=== PATIENT | female | born 1950 | race Caucasian/White ===

== ENCOUNTER 2020-12-23 20:48 | Inpatient (IN) ==
[2020-12-23 21:05] LABS: Basophils # (auto) 0.02 K/uL (0-0.2); Basophils % (auto) 0.2 %; Eosinophils # (auto) 0.18 K/uL (0-0.5); Eosinophils % (auto) 1.4 %; Hematocrit (blood only) 41.8 % (37-47); Hemoglobin 14.5 g/dL (12.0-16.0); Immature Granulocytes # (auto) 0.02 K/uL (0.00-0.02); Immature Granulocytes % (auto) 0.2 %; Lymphocytes # (auto) 1.73 K/uL (1.2-3.4); Lymphocytes % (auto) 13.8 %; Mean Corpuscular Hemoglobin 30.8 pg (25-34); Mean Corpuscular Hgb Conc 34.7 g/dL (32-36); Mean Corpuscular Volume 88.7 fL (80-100); Mean Platelet Volume 10.1 fL (7.4-10.4); Monocytes # (auto) 0.07 K/uL (0.11-0.59); Monocytes % (auto) 0.6 %; Neutrophils # (auto) 10.52 K/uL (1.4-6.5); Neutrophils % (auto) 83.8 %; Platelet Count 217 K/uL (130-400); RDW Coefficient of Variation 13.6 % (11.5-14.5); RDW Standard Deviation 44.6 fL (36.4-46.3); Red Blood Count 4.71 M/uL (4.2-5.4); White Blood Count 12.54 K/uL (4.8-10.8)
[2020-12-23 21:16] LABS: Partial Thromboplastin Ratio 0.9; Partial Thromboplastin Time 22.9 Seconds (21.0-31.0); Prothrombin Time 9.8 Seconds (9.0-12.0)
[2020-12-23 21:22] LABS: Alanine Aminotransferase 430 U/L (12-78); Aspartate Aminotransferase 739 U/L (15-37); BUN Creatinine Ratio 16.6 (10-20); Blood Urea Nitrogen 16 mg/dl (7-18); Calcium 9.3 mg/dl (8.5-10.1); Carbon Dioxide 26 mmol/L (21-32); Chloride 105 mmol/L (98-107); Creatinine Clr Calc Pharmacy 49.7 ml/min; Est GFR (African American) 70.2; Est GFR (Non-African American) 60.6; Glucose 201 mg/dl (70-99); Potassium 3.6 mmol/L (3.5-5.1); Sodium 137 mmol/L (136-145)
[2020-12-23 21:27] LABS: Albumin Globulin Ratio 1.2 (0.9-2); Alkaline Phosphatase 213 U/L (45-117); Bilirubin,Total 1.1 mg/dl (0.2-1); Globulin 3.5 gm/dl (2.5-4.0); Total Protein 7.5 gm/dl (6.4-8.2); Troponin I < 0.015 ng/ml (0-0.045)
--- NOTE | 2020-12-23 21:39 | Emergency Department Note ---
Impression & Plan Midsternal chest pain, Acalculous cholecystitis, Elevated LFTs ED Provider Note INFORMANT: Patient ED PROVIDER(S): Alfred Jerome MD CHIEF COMPLAINT: Chest pain PLAN: Disposition: Admitted Condition: Good Outpatient prescription management: none Referral: None MEDICAL DECISION MAKING: Patient presented emergency room complaining of chest pain. On examination she was tender in the epigastric and right upper quadrant. She received morphine and Zofran. This helped quite a bit with her symptoms. Her ECG did not show any acute findings. The patient was found to have a normal troponin and blood work except for her LFTs being markedly elevated. In light of this she was sent for ultrasound imaging. This revealed a borderline thickened wall, dilated common bile duct, and distended gallbladder. Sludge noted. Concerning for obstructive process or acalculus cholecystitis. Patient will need further management in hospital. Case was discussed with Dr. Forrest Villatoro, [facility] hospitalist service. Triage Nursing notes reviewed and agree them. Vital Signs: reviewed and remarkable for borderline tachycardia and hypertension Differential diagnosis: Cardiac ischemia, aortic dissection, pulmonary embolism, pneumothorax, pneumonia, pericarditis, myocarditis, esophageal rupture, GERD, cholecystitis, pancreatitis, musculoskeletal, as well as other pathologies. Diagnostics interpreted by me: ECG: ST at 103. [place]:Normal QRS:Normal ST segements:No elevation or depression Other:No PACs or PVCs Cardiac Monitoring: Cardiac monitoring ordered by me: The patient was placed on continuous cardiac monitoring and observed. It revealed a normal sinus rhythm at 91 beats per minute without ectopy or evidence of dysrhythmia. Imaging studies: Ultrasound imaging of the gallbladder is abnormal. I refer you to the EMR for further details. Consultation(s): [facility] hospitalist service HPI: The patient is a 70 year old female who presents to the Emergency Room with complaints of substernal sharp chest pain. This started at 1400 today and is pe rsisting. The patient also notes the following associated symptoms, SOB, nausea. The patient has tried antacids for relieving factors. Current pain is rated as 3/10. Hx of CAD. Pt denies LOC, headache, fevers, chills, diaphoresis, visual changes, neck pain, nausea, vomiting, abdominal pain, back pain, melena, hematochezia, urinary symptoms, numbness, weakness, lymphadenopathy, rash, or other complaints. ROS: See above HPI for pertinent positives & negatives. A total of 10 systems reviewed and were otherwise negative. PAST MEDICAL HISTORY:See Below , CAD PAST SURGICAL HISTORY:See Below, Stent x 1 FAMILY HISTORY:See Below SOCIAL HISTORY:See Below, +tobacco HOME MEDICATIONS:See Below ALLERGIES:See Below VITALS:See Below PHYSICAL EXAMINATION: GENERAL: Awake, alert, well-appearing, in no distress HENT: Normocephalic, atraumatic. Oropharynx unremarkable. EYES: Normal conjunctiva. Sclera non-icteric. NECK: Inspection normal. Non-tender. Supple. No nuchal rigidity. FROM. No masses. RESPIRATORY: Clear to auscultation. No wheezes. No rales. Normal respiratory effort. CARDIAC: Normal rate. Normal rhythm. No murmurs. No rubs. Extremities warm and well perfused. Pulses equal. No JVD. GI: Soft, non-distended. No tenderness to palpation. No rebound or guarding. No masses. RECTAL: Deferred. MUSCULOSKELETAL: Atraumatic. Chest examination reveals no tenderness. The back is symmetrical on inspection without obvious abnormality. There is no CVA tenderness to palpation. No joint edema. LOWER EXTREMITIES: Calves are equal size bilaterally and non-tender. No edema. No discoloration. NEURO: Normal sensorium. No sensory or motor deficits noted. SKIN: No rash or jaundice noted. Alfred Jerome MD Past Med/Surg History Social History Smoking Status: Light tobacco smoker Tobacco Type: Cigarettes Preferred Language: Bangladeshi Feels Safe at Home: Yes Allergies Allergies Allergy/AdvReac Type Severity Reaction Status Date / Time No Known Allergies Allergy Verified 12/23/20 21:48 Home Meds Home Medications Medication Instructions Recorded Confirmed amlodipine 10 mg PO DAILY 12/23/20 12/23/20 atorvastatin 80 mg PO DAILY 12/23/20 12/23/20 buspirone 10 mg PO TID 12/23/20 12/23/20 lamotrigine 50 mg PO BID 12/23/20 12/23/20 metoprolol tartrate 50 mg PO BID 12/23/20 12/23/20 primidone 50 mg PO DAILY 12/23/20 12/23/20 venlafaxine 50 mg PO DAILY 12/23/20 12/23/20 Results & Data (ED) Vital Signs Vital Signs - 24 hr 12/23/20 20:52 12/23/20 21:30 12/23/20 22:00 Temperature 36.5 C Temperature Source Oral Pulse Rate 100 H 88 90 Pulse Rate from SpO2 Sensor 89 89 Respiratory Rate 20 18 17 Blood Pressure 172/115 H 177/93 H 132/78 Blood Pressure Mean 134 121 96 Pulse Oximetry 96 98 96 Oxygen Delivery Method Sepsis Recent Fever Within 48 Hours No Sepsis New/Unexplained Change in Mental Status No Sepsis Action Taken by Nursing No Action Required 12/23/20 23:14 Temperature Temperature Source Pulse Rate 85 Pulse Rate from SpO2 Sensor 80 Respiratory Rate 17 Blood Pressure 134/90 Blood Pressure Mean 104 Pulse Oximetry 93 Oxygen Delivery Method Room Air Sepsis Recent Fever Within 48 Hours Sepsis New/Unexplained Change in Mental Status Sepsis Action Taken by Nursing Laboratory Data Result diagrams: 12/23/20 20:57 12/23/20 20:57 Lab Results 12/23/20 12/23/20 12/23/20 Range/Units 20:57 20:57 20:57 WBC 12.54 H (4.8-10.8) K/uL RBC 4.71 (4.2-5.4) M/uL Hgb 14.5 (12.0-16.0) g/dL Hct 41.8 (37-47) % MCV 88.7 (80-100) fL MCH 30.8 (25-34) pg MCHC 34.7 (32-36) g/dL RDW Std Deviation 44.6 (36.4-46.3) fL RDW Coeff of Miquel 13.6 (11.5-14.5) % Plt Count 217 (130-400) K/uL MPV 10.1 (7.4-10.4) fL Immature Gran % (Auto) 0.2 % Neut % (Auto) 83.8 % Lymph % (Auto) 13.8 % [place] % (Auto) 0.6 % Eos % (Auto) 1.4 % Baso % (Auto) 0.2 % Neut # (Auto) 10.52 H (1.4-6.5) K/uL Lymph # (Auto) 1.73 (1.2-3.4) K/uL [place] # (Auto) 0.07 L (0.11-0.59) K/uL Eos # (Auto) 0.18 (0-0.5) K/uL Baso # (Auto) 0.02 (0-0.2) K/uL Immature Gran # (Auto) 0.02 (0.00-0.02) K/uL PT 9.8 (9.0-12.0) Seconds INR 1.0 (0.9-1.1) APTT 22.9 (21.0-31.0) Seconds PTT Ratio 0.9 Sodium 137 (136-145) mmol/L Potassium 3.6 (3.5-5.1) mmol/L Chloride 105 (98-107) mmol/L Carbon Dioxide 26 (21-32) mmol/L Anion Gap 6.0 (3-11) BUN 16 (7-18) mg/dl Creatinine 0.94 (0.6-1.2) mg/dl Est Cr Clr Drug Dosing 49.7 ml/min Est GFR ( Amer) 70.2 Est GFR (Non-Af Amer) 60.6 BUN/Creatinine Ratio 16.6 (10-20) Glucose 201 H (70-99) mg/dl Calcium 9.3 (8.5-10.1) mg/dl Magnesium 1.8 (1.8-2.4) mg/dl Total Bilirubin 1.1 H (0.2-1) mg/dl AST 739 H (15-37) U/L ALT 430 H (12-78) U/L Alkaline Phosphatase 213 H (45-117) U/L Troponin I < 0.015 (0-0.045) ng/ml Total Protein 7.5 (6.4-8.2) gm/dl Albumin 4.0 (3.4-5.0) gm/dl Globulin 3.5 (2.5-4.0) gm/dl Albumin/Globulin Ratio 1.2 (0.9-2) Lipase 381 (73-393) U/L COVID-19 Eval Order SARS-CoV-2, RNA, NAAT (NEGATIVE) 12/23/20 12/23/20 Range/Units 23:20 23:20 WBC (4.8-10.8) K/uL RBC (4.2-5.4) M/uL Hgb (12.0-16.0) g/dL Hct (37-47) % MCV (80-100) fL MCH (25-34) pg MCHC (32-36) g/dL RDW Std Deviation (36.4-46.3) fL RDW Coeff of Miquel (11.5-14.5) % Plt Count (130-400) K/uL MPV (7.4-10.4) fL Immature Gran % (Auto) % Neut % (Auto) % Lymph % (Auto) % [place] % (Auto) % Eos % (Auto) % Baso % (Auto) % Neut # (Auto) (1.4-6.5) K/uL Lymph # (Auto) (1.2-3.4) K/uL [place] # (Auto) (0.11-0.59) K/uL Eos # (Auto) (0-0.5) K/uL Baso # (Auto) (0-0.2) K/uL Immature Gran # (Auto) (0.00-0.02) K/uL PT (9.0-12.0) Seconds INR (0.9-1.1) APTT (21.0-31.0) Seconds PTT Ratio Sodium (136-145) mmol/L Potassium (3.5-5.1) mmol/L Chloride (98-107) mmol/L Carbon Dioxide (21-32) mmol/L Anion Gap (3-11) BUN (7-18) mg/dl Creatinine (0.6-1.2) mg/dl Est Cr Clr Drug Dosing ml/min Est GFR ( Amer) Est GFR (Non-Af Amer) BUN/Creatinine Ratio (10-20) Glucose (70-99) mg/dl Calcium (8.5-10.1) mg/dl Magnesium (1.8-2.4) mg/dl Total Bilirubin (0.2-1) mg/dl AST (15-37) U/L ALT (12-78) U/L Alkaline Phosphatase (45-117) U/L Troponin I (0-0.045) ng/ml Total Protein (6.4-8.2) gm/dl Albumin (3.4-5.0) gm/dl Globulin (2.5-4.0) gm/dl Albumin/Globulin Ratio (0.9-2) Lipase (73-393) U/L COVID-19 Eval [facility] SARS-CoV-2, RNA, NAAT NEGATIVE (NEGATIVE) Administered Medications Discontinued Medications Morphine Sulfate (Morphine Sulfate 4 Mg/Ml 1 Ml Carp\Vial) 4 mg IV NOW STA Stop: 12/23/20 21:41 Last Admin: 12/23/20 21:44 Dose: 4 mg Documented by: [id number] Ondansetron HCl (Ondansetron Inj 2 Mg/Ml 2 Ml Vial) 4 mg IV NOW STA Stop: 12/23/20 21:41 Last Admin: 12/23/20 21:44 Dose: 4 mg Documented by: [id number] Discharge Plan Visit Data Chief Complaint: Chest Pain Stated Complaint: SOB, CHEST PAIN ED Provider: Alfred Jerome Discharge Problem: Midsternal chest pain, Acalculous cholecystitis, Elevated LFTs Forms Stand Alone Forms: My [facility] Prescriptions Prescriptions: No Action primidone 50 mg Tablet 50 mg PO DAILY RF: 0 atorvastatin 80 mg Tablet 80 mg PO DAILY RF: 0 lamotrigine 25 mg Tablet 50 mg PO BID RF: 0 amlodipine 10 mg Tablet 10 mg PO DAILY RF: 0 buspirone 10 mg Tablet 10 mg PO TID RF: 0 metoprolol tartrate 50 mg Tablet 50 mg PO BID RF: 0 venlafaxine 50 mg Tablet 50 mg PO DAILY RF: 0
[2020-12-23] MEDS ORDERED: MoRPHine SULFATE 4 MG/ML 1 ML CARP\\VIAL IV STA (21:40)
[2020-12-23] MEDS ORDERED: ONDANSETRON INJ 2 MG/ML 2 ML VIAL IV STA (21:40)
[2020-12-23 23:51] LABS: Lipase 381 U/L (73-393); Magnesium 1.8 mg/dl (1.8-2.4)
[2020-12-24] MEDS ORDERED: LORazepam 0.5 MG/1 ML VIAL IV PRN (01:39)
[2020-12-24] MEDS ORDERED: DEXTROSE 50% 50 ML SYRINGE IV PRN (01:39)
[2020-12-24] MEDS ORDERED: GLUCAGON FOR INJ 1 MG VIAL SQ PRN (01:39)
[2020-12-24] MEDS ORDERED: CARBOHYDRATES FOR HYPOGLYCEMIA PO PRN (01:39)
[2020-12-24] MEDS ORDERED: GLUCOSE 40% GEL 15 GM TUBE PO PRN (01:39)
[2020-12-24] MEDS ORDERED: MoRPHine SULFATE 4 MG/ML 1 ML CARP\\VIAL IV PRN ×2 (01:39→08:20)
[2020-12-24] MEDS ORDERED: GLUCOSE 10 TABS/TUBE PO PRN (01:39)
[2020-12-24] MEDS ORDERED: ACETAMINOPHEN 325 MG TAB PO PRN (01:39)
[2020-12-24] MEDS: POTASSIUM CHLORIDE 40 MEQ in SODIUM CHLORIDE 0.9% 1000ML 1,000 ML IV SCH ×2 (02:15→20:41)
[2020-12-24] MEDS: PROMETHAZINE HCL 12.5 MG in SODIUM CHLORIDE 0.9% 50 ML IV PRN (02:15)
[2020-12-24] MEDS: METOPROLOL TARTRATE 50 MG TAB PO SCH ×2 (02:24→20:53)
[2020-12-24] MEDS: INSULIN ASPART 100 UNITS/ML 3 ML PEN SC SCH ×5 (02:39→20:54)
[2020-12-24] MEDS ORDERED: Nursing to Pharmacy Communication SCH (02:45)
--- NOTE | 2020-12-24 03:52 | History & Physical Report ---
Date of Service December 24, 2020 Assessment & Plan (1) Abdominal pain: With abnormal LFTs likely secondary to biliary tract obstruction possible choledocholithiasis No sepsis for now Hypertension, initially elevated upon arrival at the ER hx CAD status post stent hyperlipidemia on statin Rx seizure disorder, stable on regimen mood disorder, stable prediabetes as per records, meets criteria for DM2 diagnosis given hemoglobin A1c of 6.19 March 2020 Past alcohol abuse ongoing tobacco abuse OBS GMF MRCP, GI consult Re: Abdominal pain with abnormal LFTs N.p.o. until patient seen by GI ISS BG goal [id number], update hemoglobin A1c Nicotine gum as needed DVT prophylaxis per Lovenox subcu Full code Text document was generated using [employer] voice recognition software. It may contain grammatical or spelling errors. Kindly contact undersigned for clarification of any documentation item in question. Admission and Anticipated Discharge Date Admission Date: December 24, 2020 History of Present Illness Chief Complaint: Epigastric pain going to the chest Primary Care Provider: Sam Hand PA-C History obtained from patient and records. Medical history significant for CAD status post stent, hypertension, hyperlipidemia, seizure disorder, mood disorder, prediabetes as per records, past alcohol abuse, ongoing tobacco abuse. Patient woke up yesterday afternoon and noted burning epigastric discomfort going to her chest with some shortness of breath. No cough symptoms. Patient felt she was having a heart attack. Symptoms partially unresponsive to antacids. No recent EtOH intake. No fever, no chills. Patient currently more comfortable at the ER. Medical History as above Surgical History : Breast lesion excision, section, BAKARI, oophorectomy (1 ovary left) Family History : Alcoholism, breast cancer, heart disease Personal/Social history : 1 cigarette/day, past alcohol abuse, [employer] employee Allergies Allergy/AdvReac Type Severity Reaction Status Date / Time No Known Allergies Allergy Verified 12/23/20 21:48 Home Medications Medication Instructions Recorded Confirmed Type amlodipine 10 mg PO DAILY 12/23/20 12/23/20 History atorvastatin 80 mg PO DAILY 12/23/20 12/23/20 History buspirone 10 mg PO TID 12/23/20 12/23/20 History lamotrigine 50 mg PO BID 12/23/20 12/23/20 History metoprolol tartrate 50 mg PO BID 12/23/20 12/23/20 History primidone 50 mg PO DAILY 12/23/20 12/23/20 History venlafaxine 50 mg PO DAILY 12/23/20 12/23/20 History Past Med/Surg History Social History Smoking Status: Current every day smoker Tobacco Type: Cigarettes Cigarettes Per Day: 1; Do You Dip or Chew Tobacco: No; Hx Alcohol Use: No Hx Substance Use: No Preferred Language: Kyrgyz Communication Ability: Effective Bird Raiser Required: No Beliefs That Will Affect Care: None Current Living Situation: Alone Other Information That Helps Us Care for You: No Feels Safe at Home: Yes Safety Concerns: Feels Safe At This Time Assistive Devices: Denture - Upper and Glasses Assistive Devices Comment: upper partial Review of Systems Review of Systems: As per HPI, all 10 systems reviewed, all other ROS negative Physical Exam Physical Exam: GENERAL: Comfortable, obese, slightly anxious, no respiratory distress SKIN: Normal color, warm HEENT: [place] palpebral conjunctivae, no ptosis, dry buccal mucosa NECK : Supple, short neck, no tenderness CHEST : CTA, no tenderness HEART : RRR, no obvious murmurs ABDOMEN: Some distention, epigastric tenderness EXTREMITIES : Minimal LE swelling , no LE tenderness, no other conspicuous deformities noted NEUROLOGIC : Coherent, no facial asymmetry, no other gross focality Results & Data Results & Data ([facility]) Vital Signs (Past 12 Hours) Vital Signs Temp Pulse Pulse Resp BP BP Pulse Ox 12/24/20 01:57 36.8 C 93 H 20 148/91 H 94 12/24/20 01:39 36.8 C 93 H 20 148/91 H 94 12/24/20 00:59 94 H 17 144/89 H 98 12/24/20 00:00 94 H 22 139/94 98 12/23/20 23:14 85 17 134/90 93 12/23/20 22:00 90 17 132/78 96 12/23/20 21:30 88 18 177/93 H 98 12/23/20 20:52 36.5 C 100 H 20 172/115 H 96 Laboratory Results Laboratory Results WBC 12.54 K/uL (4.8-10.8) H 12/23/20 20:57 RBC 4.71 M/uL (4.2-5.4) 12/23/20 20:57 Hgb 14.5 g/dL (12.0-16.0) 12/23/20 20:57 Hct 41.8 % (37-47) 12/23/20 20:57 MCV 88.7 fL (80-100) 12/23/20 20:57 MCH 30.8 pg (25-34) 12/23/20 20:57 MCHC 34.7 g/dL (32-36) 12/23/20 20:57 RDW Std Deviation 44.6 fL (36.4-46.3) 12/23/20 20:57 RDW Coeff of Miquel 13.6 % (11.5-14.5) 12/23/20 20:57 Plt Count 217 K/uL (130-400) 12/23/20 20:57 MPV 10.1 fL (7.4-10.4) 12/23/20 20:57 Immature Gran % (Auto) 0.2 % 12/23/20 20:57 Neut % (Auto) 83.8 % 12/23/20 20:57 Lymph % (Auto) 13.8 % 12/23/20 20:57 Major % (Auto) 0.6 % 12/23/20 20:57 Eos % (Auto) 1.4 % 12/23/20 20:57 Baso % (Auto) 0.2 % 12/23/20 20:57 Neut # (Auto) 10.52 K/uL (1.4-6.5) H 12/23/20 20:57 Lymph # (Auto) 1.73 K/uL (1.2-3.4) 12/23/20 20:57 Major # (Auto) 0.07 K/uL (0.11-0.59) L 12/23/20 20:57 Eos # (Auto) 0.18 K/uL (0-0.5) 12/23/20 20:57 Baso # (Auto) 0.02 K/uL (0-0.2) 12/23/20 20:57 Immature Gran # (Auto) 0.02 K/uL (0.00-0.02) 12/23/20 20:57 PT 9.8 Seconds (9.0-12.0) 12/23/20 20:57 INR 1.0 (0.9-1.1) 12/23/20 20:57 APTT 22.9 Seconds (21.0-31.0) 12/23/20 20:57 PTT Ratio 0.9 12/23/20 20:57 Sodium 137 mmol/L (136-145) 12/23/20 20:57 Potassium 3.6 mmol/L (3.5-5.1) 12/23/20 20:57 Chloride 105 mmol/L (98-107) 12/23/20 20:57 Carbon Dioxide 26 mmol/L (21-32) 12/23/20 20:57 Anion Gap 6.0 (3-11) 12/23/20 20:57 BUN 16 mg/dl (7-18) 12/23/20 20:57 Creatinine 0.94 mg/dl (0.6-1.2) 12/23/20 20:57 Est Cr Clr Drug Dosing 49.7 ml/min 12/23/20 20:57 Est GFR ( Amer) 70.2 12/23/20 20:57 Est GFR (Non-Af Amer) 60.6 12/23/20 20:57 BUN/Creatinine Ratio 16.6 (10-20) 12/23/20 20:57 Glucose 201 mg/dl (70-99) H 12/23/20 20:57 POC Glucose 160 mg/dl (70-99) H 12/24/20 02:21 Calcium 9.3 mg/dl (8.5-10.1) 12/23/20 20:57 Magnesium 1.8 mg/dl (1.8-2.4) 12/23/20 20:57 Total Bilirubin 1.1 mg/dl (0.2-1) H 12/23/20 20:57 AST 739 U/L (15-37) H 12/23/20 20:57 ALT 430 U/L (12-78) H 12/23/20 20:57 Alkaline Phosphatase 213 U/L (45-117) H 12/23/20 20:57 Troponin I < 0.015 ng/ml (0-0.045) 12/23/20 20:57 Total Protein 7.5 gm/dl (6.4-8.2) 12/23/20 20:57 Albumin 4.0 gm/dl (3.4-5.0) 12/23/20 20:57 Globulin 3.5 gm/dl (2.5-4.0) 12/23/20 20:57 Albumin/Globulin Ratio 1.2 (0.9-2) 12/23/20 20:57 Lipase 381 U/L (73-393) 12/23/20 20:57 COVID-19 Eval Order Covid19 IDNow [facility] 12/23/20 23:20 SARS-CoV-2, RNA, NAAT NEGATIVE (NEGATIVE) 12/23/20 23:20 Diagnostic Findings Ultrasound gallbladder initial read: 5 mm cystic lesion pancreas adjacent to pancreatic duct possible small IPMN. Echogenic liver suggesting steatosis. CBD measuring 8 to 9 mm, slightly enlarged for patient's age. Consider MRCP if with evidence of biliary obstruction. Gallbladder distention with sludge but no gallstones identified. Borderline gallbladder wall thickness measuring 3 mm. No convincing findings of acute cholecystitis. No ascites. Chest x-ray as per my interpretation elevated right hemidiaphragm EKG as per my interpretation : Rate 105, sinus tachycardia, normal axis, T wave flattening lateral and septal leads Code Status & VTE Plan VTE Prophylaxis Plan VTE Prophylaxis will be ordered: Yes
[2020-12-24] MEDS: oxyCODONE HCL IR 5 MG TAB (IMMEDIATE RELEASE) PO PRN ×2 (05:41→22:26)
[2020-12-24 06:52] LABS: Estimated Average Glucose 151 mg/dl; Hemoglobin A1C 6.9 % (4.5-5.6)
[2020-12-24] MEDS: amLODIPine BESYLATE 5 MG TAB PO SCH (07:18)
[2020-12-24] MEDS: ENOXAPARIN INJ 40 MG/0.4 ML SYR SQ SCH (07:18)
[2020-12-24] MEDS: VENLAFAXINE HCL 50 MG TAB PO SCH (07:18)
[2020-12-24] MEDS: busPIRone 5 MG TAB PO SCH ×3 (07:19→20:53)
[2020-12-24] MEDS: lamoTRIgine 25 MG TAB PO SCH ×2 (07:19→20:53)
[2020-12-24 07:23] LABS: Basophils # (auto) 0.01 K/uL (0-0.2); Basophils % (auto) 0.1 %; Eosinophils # (auto) 0.05 K/uL (0-0.5); Eosinophils % (auto) 0.7 %; Hematocrit (blood only) 40.6 % (37-47); Hemoglobin 13.7 g/dL (12.0-16.0); Immature Granulocytes # (auto) 0.01 K/uL (0.00-0.02); Immature Granulocytes % (auto) 0.1 %; Lymphocytes % (auto) 8.2 %; Mean Corpuscular Hemoglobin 30.4 pg (25-34); Mean Corpuscular Hgb Conc 33.7 g/dL (32-36); Mean Corpuscular Volume 90.2 fL (80-100); Mean Platelet Volume 10.4 fL (7.4-10.4); Monocytes # (auto) 0.63 K/uL (0.11-0.59); Monocytes % (auto) 8.6 %; Neutrophils % (auto) 82.3 %; Platelet Count 203 K/uL (130-400); RDW Coefficient of Variation 13.7 % (11.5-14.5); RDW Standard Deviation 45.3 fL (36.4-46.3)
[2020-12-24 07:56] LABS: Albumin Level 3.7 gm/dl (3.4-5.0); BUN Creatinine Ratio 18.3 (10-20); Calcium 9.2 mg/dl (8.5-10.1); Creatinine Clr Calc Pharmacy 58.7 ml/min; Est GFR (African American) 89.4; Est GFR (Non-African American) 77.1
[2020-12-24 08:05] LABS: Albumin Globulin Ratio 1.1 (0.9-2); Bilirubin,Total 2.3 mg/dl (0.2-1); Globulin 3.3 gm/dl (2.5-4.0)
--- NOTE | 2020-12-24 08:05 | XRay Report ---
XR chest 1V portable HISTORY: Atypical Chest Pain COMPARISON: None. FINDINGS: The lungs are clear. Cardiac silhouette is mildly enlarged. No pleural effusions. No pneumo thorax. IMPRESSION: Mild cardiomegaly. ACT 112: Negative or not required by law. Electronically signed by: Julien Arteaga M.D. 12/24/2020 8:03 AM
--- NOTE | 2020-12-24 08:08 | Ultrasound Report ---
US gallbladder CLINICAL HISTORY: chest pain, elevated LFTs COMPARISON STUDY: No previous studies for comparison. FINDINGS: No focal hepatic masses are visualized. The liver is of slightly increased echogenicity, a nonspecific finding likely secondary to hepatic steatosis. There is gallbladder sludge but no shadowing calculi are visualized. There is no significant wall thi ckening. The gallbladder is mildly distended. The common bile duct is mildly dilated measuring 9 mm. There is no right-sided hydronephrosis. There are multiple right renal cyst. The pancreatic duct is at the upper limits of normal in diameter. There is a 5 mm cystic lesion withi n the pancreatic neck possibly representing an IPMN IMPRESSION: 1. Mildly distended gallbladder containing sludge. No shadowing calculi identified 2. Mildly dilated common bile duct measuring 9 mm in maximal diameter 3. Possible hepatic steatosis 4. 5 mm cystic lesion within the pancreatic neck possibly representing an IPMN ACT 112: Negative or not required by law. Electronically signed by: Darci Alcaraz M.D. 12/24/2020 8:06 AM
[2020-12-24] MEDS ORDERED: METOPROLOL TARTRATE 50 MG TAB PO SCH (09:00)
[2020-12-24] MEDS ORDERED: PRIMIDONE 50 MG TAB PO SCH (09:00)
--- NOTE | 2020-12-24 10:13 | Gastrointestinal Consultation ---
Date of Consultation December 24, 2020 Assessment & Plan (1) Elevated LFTs: (2) Abdominal pain: Pt is a 70 y/o female w epigastric abd pain, nausea and elevated LFTs, u/s showed signs of gallbladder sludge, CBD dilation. MRCP obtained, final results pending - IVF support - Keep NPO for ERCP in OR by Dr. Schmitz today - Trend LFTs after procedure; if not improved will need serological workup to r/o AIH, viral, acute hepatitis etc. - Symptomatic management w antiemetics and analgesics prn Supervising Physician Co-Signing Physician Notes I performed a history and physical examination of the patient today, including specifically on physical exam - soft abdomen. I have discussed the patient's management with the advanced practitioner. Please refer to the nurse practitioner's note for the documented findings and plan of care. EUS/ERCP today History of Present Illness Reason for Consultation: Abd pain, elevated LFTs Requesting Physician: Dr. John William Attending Physician: Dr. Tiffany Schmitz History of Present Illness Pt is a 70 y/o female who presented w epigastric burning pain x 2 days. She has associated nausea, no vomiting. Denies fever, chills, CP, SOB, changes in bowel habits. She tried antiacids at home w/o resolution of symptoms. On eval in ED noted to have mild leukocytosis and elevated LFTs: Tbili 2.3, AST 1925, ALT 1500, Alk phos 291. Lipase normal. RUQ u/s showed distended gallbladder w sludge but no stones, CBD 9mm, possible hepatic steatosis and pancreatic neck 5mm cystic lesion possibly IPMN Pt smokes tobacco, denies ETOH (28 yrs sober), denies illicit drugs, tattoos, body piercing APAP uses (max 2 tabs a day for OA pain), denies new meds/herbal supplements/antibx Allergies Allergy/AdvReac Type Severity Reaction Status Date / Time No Known Allergies Allergy Verified 12/23/20 21:48 Home Medications Medication Instructions Recorded Confirmed Type amlodipine 10 mg PO DAILY 12/23/20 12/23/20 History atorvastatin 80 mg PO DAILY 12/23/20 12/23/20 History buspirone 10 mg PO TID 12/23/20 12/23/20 History lamotrigine 50 mg PO BID 12/23/20 12/23/20 History metoprolol tartrate 50 mg PO BID 12/23/20 12/23/20 History primidone 50 mg PO DAILY 12/23/20 12/23/20 History venlafaxine 50 mg PO DAILY 12/23/20 12/23/20 History Patient History Medical History Coronary artery disease Dyslipidemia Elevated liver function tests History of alcohol abuse Hypertension Mood disorder Obesity Seizure disorder Surgical History H/O heart artery stent History of breast surgery History of History of total abdominal hysterectomy Social History Smoking Status: Current every day smoker Tobacco Type: Cigarettes Cigarettes Per Day: 1; Do You Dip or Chew Tobacco: No; Hx Alcohol Use: No Hx Substance Use: No Preferred Language: Kazakh Communication Ability: Effective Business Systems Architect Required: No Beliefs That Will Affect Care: None Current Living Situation: Alone Other Information That Helps Us Care for You: No Feels Safe at Home: Yes Safety Concerns: Feels Safe At This Time Assistive Devices: None Assistive Devices Comment: upper partial Review of Systems Review of Systems: All systems reviewed & are unremarkable except as noted in HPI & below Physical Exam Constitutional: WD/WN, vitals as above well groomed, cooperative and comfortable Eyes: PERRL, conjunctivae normal, anicteric sclerae ENMT: external ear and nose normal, oropharynx normal Respiratory: normal respiratory effort, lungs clear to auscultation Cardiovascular: RRR, no murmur, no edema Gastrointestinal (Abdomen): Inspection/Auscultation: + hypoactive bowel sounds Percussion/Palpation: + abdomen tender (epigastric) and abdomen soft Skin: no rashes, warm and dry no jaundice Psychiatric: A+Ox3, euthymic affect Lymphatic: no lymphedema Results & Data ([facility]) Vital Signs (Past 12 Hours) Vital Signs Temp Pulse Pulse Resp BP BP Pulse Ox 12/24/20 08:20 37.1 C 92 H 18 131/83 92 12/24/20 01:57 36.8 C 93 H 20 148/91 H 94 12/24/20 01:39 36.8 C 93 H 20 148/91 H 94 12/24/20 00:59 94 H 17 144/89 H 98 12/24/20 00:00 94 H 22 139/94 98 12/23/20 23:14 85 17 134/90 93
--- NOTE | 2020-12-24 10:30 | Magnetic Resonance Report ---
MR MRCP HISTORY: 70 years-old Female abd pain, abn lfts acute upper abdominal pain with elevated LFTs COMPARISON: Gallbladder ultrasound 12/23/2020 TECHNIQUE: MRCP without the use of IV contrast was obtained according to institutional protocol FINDINGS: Study is mildly motion degraded. The heart is enlarged. Mild right hemidiaphragmatic elevation. Numerous T2 hyperintense foci of the k idneys suggestive of cysts measuring up to 4.5 cm on the left and 2.7 cm on the right. There is a reyna picious 2.1 x 1.8 cm lesion of the posterior interpolar right kidney on image 20 series 3 which is pr edominately T2 isointense. There is no hydronephrosis. No aortic aneurysm. No adenopathy. No bowel ob struction or abdominal free fluid. Unremarkable soft tissues. The spleen, adrenal glands and liver appear unremarkable. Distended gallbladder with layering sludge versus cholelithiasis. The common bile duct is normal in caliber measuring 8 mm. There is no intrahe patic biliary ductal dilation. No choledocholithiasis. No pericholecystic fluid. No pancreatic ductal dilation. 7 mm T2 hyperintense focus of the pancreatic neck is suggestive of a sidebranch IPMN. No p ancreatic divisum. IMPRESSION: 1. Distended gallbladder with layering sludge versus cholelithiasis. 2. No biliary ductal dilation or choledocholithiasis identified. 3. 7 mm cystic lesion of the peripancreatic neck is suggestive of a sidebranch IPMN. 4. Bilateral renal cysts with a 2.1 x 1.8 cm lesion of the posterior interpolar right kidney suspicio us for renal cell carcinoma. Correlation with a CT or MRI renal mass protocol study recommended. ACT 112: Positive. There are findings on this exam that require communication between the performing entity and the patient following Patient Test Result Information Act ([place] Act 112) guidelines. The above report was generated using voice recognition software. It may contain grammatical, syntax o r spelling errors. Electronically signed by: Juan David Blum M.D. 12/24/2020 10:29 AM
--- NOTE | 2020-12-24 11:18 | Hospitalist Progress Note ---
Date of Service December 24, 2020 Assessment & Plan (1) Elevated liver function tests: Possible hepatic steatosis CBD dilatation Transaminitis Possible IPMN -Gall Bladder:Mildly distended gallbladder containing sludge. No shadowing calculi identified. Mildly dilated common bile duct measuring 9 mm in maximal diameter. Possible hepatic steatosis. 5 mm cystic lesion within the pancreatic neck possibly representing an IPMN -MRCP:Distended gallbladder with layering sludge versus cholelithiasis. No biliary ductal dilation or choledocholithiasis identified. 7 mm cystic lesion of the peripancreatic neck is suggestive of a sidebranch IPMN. Bilateral renal cysts with a 2.1 x 1.8 cm lesion of the posterior interpolar right kidney suspicious for renal cell carcinoma. Correlation with a CT or MRI renal mass protocol study recommended. -H/O prior Alcohol use--currently denies use -Hold Statin for now -Admits to taking Tylenol daily -Avoid Hepatotoxic agents -Monitor LFTs -Planned for ERCP today -Appreciate GI Input -Will consider serological work up if needed Renal Lesion Suspicious for renal cell carcinoma H/O Tobacco use Incidental finding on MRCP Will Consult Urology Hypertension Continue amlodipine, metoprolol Monitor CAD S/P Stent Continue home medications Hyperlipidemia Hold statin secondary to elevated LFTs Seizure disorder Mood disorder Continue home meds DM II H/O Prediabetes as per records Diet controlled Continue insulin therapy while hospitalized Diabetic education Ongoing tobacco abuse 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 DVT Px: Lovenox SQ Code Status Full code Disposition Expect to discharge home when medically stable Admission and Anticipated Discharge Date Admission Date: December 24, 2020 Subjective Patient is seen and examined at bedside Less abdominal pain today Reports nausea but no vomiting Plan for ERCP today Denies chest pain, dizziness, dyspnea Offers no other complaints Review of Systems Review of Systems: All systems reviewed & are unremarkable except as noted in HPI & below Physical Exam Physical Exam: Physical Exam: Vitals signs as noted above General Appearance:Moderately built and nourished, no apparent distress Head: normocephalic, Atraumatic Eyes: normal inspection, EOMI Neck: supple, Trachea midline Respiratory/Chest: Normal breath sounds, CTA, No accessory muscle use Cardiovascular: S1, S2, No murmur Abdomen/GI:Soft, Mild Epigastric tender, Bowel sounds present Extremities/Musculoskelatal:normal inspection, B/L LE edema Neurologic/Psych:AAOX3, grossly no focal neurological deficits Skin: normal color, warm Results & Data Results & Data ([facility]) Vital Signs (Past 12 Hours) Vital Signs Temp Pulse Pulse Resp BP BP Pulse Ox 12/24/20 08:20 37.1 C 92 H 18 131/83 92 12/24/20 01:57 36.8 C 93 H 20 148/91 H 94 12/24/20 01:39 36.8 C 93 H 20 148/91 H 94 12/24/20 00:59 94 H 17 144/89 H 98 12/24/20 00:00 94 H 22 139/94 98 Laboratory Results Short CBC 12/23/20 12/24/20 Range/Units 20:57 06:54 WBC 12.54 H 7.30 (4.8-10.8) K/uL Hgb 14.5 13.7 (12.0-16.0) g/dL Hct 41.8 40.6 (37-47) % Plt Count 217 203 (130-400) K/uL BMP 12/23/20 12/24/20 20:57 06:54 Sodium 137 137 Potassium 3.6 4.0 Chloride 105 105 Carbon Dioxide 26 24 BUN 16 14 Creatinine 0.94 0.77 Glucose 201 H 162 H Calcium 9.3 9.2 Cardiac Enzymes 12/23/20 Range/Units 20:57 Troponin I < 0.015 (0-0.045) ng/ml Liver Function 12/23/20 12/24/20 Range/Units 20:57 06:54 Total Bilirubin 1.1 H 2.3 H D (0.2-1) mg/dl AST 739 H 1925 H (15-37) U/L ALT 430 H 1500 H (12-78) U/L Alkaline Phosphatase 213 H 291 H (45-117) U/L Albumin 4.0 3.7 (3.4-5.0) gm/dl
[2020-12-24] MEDS ORDERED: fentaNYL citrate 100 MCG/2 ML VIAL ONE (13:27)
[2020-12-24] MEDS ORDERED: LIDOCAINE HCL 2% 2 ML VIAL/AMP(20MG/ML) INFIL ONE (13:27)
[2020-12-24] MEDS ORDERED: ONDANSETRON INJ 2 MG/ML 2 ML VIAL ONE (13:27)
[2020-12-24] MEDS ORDERED: PROPOFOL IV EMULSION 10 MG/ML 20 ML VIAL IV ONE (13:27)
--- NOTE | 2020-12-24 13:54 | Electrocardiogram Report ---
Test Reason : Blood Pressure : / mmHG Vent. Rate : 103 BPM Atrial Rate : 103 BPM P-R Int : 166 ms QRS Dur : 078 ms QT Int : 342 ms P-R-T Axes : 063 014 054 degrees QTc Int : 448 ms Poor data quality, interpretation may be adversely affected Sinus tachycardia Otherwise normal ECG No previous ECGs available Confirmed by Leonides Mendez ([id number]) on 12/24/2020 1:54:20 PM Referred By: REFERRED SELF Confirmed By:Leonides Mendez
--- NOTE | 2020-12-24 14:46 | Anesthesiology Consultation ---
Date of Service December 24, 2020 Assessment & Plan Chart Review Chart Review: Acceptable Risk for Surgery Consults Requested none History Surgery Operation Date: 12/24/20 09:25 Proposed Procedures p Endoscopic Retrograde Cholangiopancreato - Tiffany Schmitz MD Height/Weight Height: 5 ft Weight: 72.4 kg Allergies Allergy/AdvReac Type Severity Reaction Status Date / Time No Known Allergies Allergy Verified 12/23/20 21:48 Medications Home Medications Medication Instructions Recorded Confirmed Last Taken amlodipine 10 mg PO DAILY 12/23/20 12/23/20 12/23/20 atorvastatin 80 mg PO DAILY 12/23/20 12/23/20 12/23/20 buspirone 10 mg PO TID 12/23/20 12/23/20 12/23/20 lamotrigine 50 mg PO BID 12/23/20 12/23/20 12/23/20 metoprolol tartrate 50 mg PO BID 12/23/20 12/23/20 12/23/20 primidone 50 mg PO DAILY 12/23/20 12/23/20 12/23/20 venlafaxine 50 mg PO DAILY 12/23/20 12/23/20 12/23/20 Active Medications Generic Name Dose Route Start Last Admin Trade Name Freq PRN Reason Stop Dose Admin Amlodipine Besylate 10 mg 12/24/20 09:00 12/24/20 07:18 Amlodipine Besylate 5 Mg Tab PO 01/23/21 08:59 10 mg DAILY CHINO Administration Buspirone HCl 10 mg 12/24/20 09:00 12/24/20 07:19 Buspirone 5 Mg Tab PO 01/23/21 08:59 10 mg TID CHINO Administration Enoxaparin Sodium 40 mg 12/24/20 09:00 12/24/20 07:18 Enoxaparin Inj 40 Mg/0.4 Ml Syr SQ 01/23/21 08:59 40 mg QAM CHINO Administration Potassium Chloride 40 meq/ 1,020 mls @ 60 mls/hr 12/24/20 02:00 12/24/20 12:48 Sodium Chloride IV 01/23/21 01:59 0 mls/hr .Q17H CHINO Infusion Promethazine HCl 12.5 mg/ 50.5 mls @ 202 mls/hr 12/24/20 01:39 12/24/20 02:51 Sodium Chloride IV 01/23/21 01:38 Infused Q6H PRN Infusion Nausea And Vomiting Insulin Aspart 0 units 12/24/20 01:39 12/24/20 11:57 Insulin Aspart 100 Units/Ml 3 Ml Pen SC 01/23/21 01:38 Not Given ACHS CHINO Lamotrigine 50 mg 12/24/20 09:00 12/24/20 07:19 Lamotrigine 25 Mg Tab PO 01/23/21 08:59 50 mg BID CHINO Administration Metoprolol Tartrate 50 mg 12/24/20 01:50 12/24/20 02:24 Metoprolol Tartrate 50 Mg Tab PO 01/23/21 01:49 50 mg BID CHINO Administration Oxycodone HCl 5 - 10 mg 12/24/20 01:39 12/24/20 05:41 Oxycodone Hcl Ir 5 Mg Tab (Immediate Release) PO 01/07/21 01:38 5 mg QID PRN Administration Pain Venlafaxine HCl 50 mg 12/24/20 09:00 12/24/20 07:18 Venlafaxine Hcl 50 Mg Tab PO 01/23/21 08:59 50 mg DAILY CHINO Administration NPO Date Last Intake of Fluids: 12/23/20 Time Last Intake of Fluids: 17:00 Last Intake of Fluids Comment: ice chips this AM Date Last Intake of Solids: 12/23/20 Time Last Intake of Solids: 17:00 Past Medical History Medical History Coronary artery disease Dyslipidemia Elevated liver function tests History of alcohol abuse Hypertension Mood disorder Obesity Seizure disorder Past Surgical History Surgical History H/O heart artery stent History of breast surgery History of History of total abdominal hysterectomy Social History Smoking Status: Current every day smoker tobacco type: cigarettes Smoking cigarettes per day: 1 Do You Dip or Chew Tobacco: No Hx Alcohol Use: No Hx Substance Use: No substance use type: does not use Physical Exam Vital Signs Last Vital Signs Temp 37.4 C 12/24/20 13:25 Pulse 92 H 12/24/20 13:25 Resp 18 12/24/20 13:25 BP 118/84 12/24/20 13:25 Pulse Ox 92 12/24/20 08:20 Testing Laboratory Results 12/24/20 06:54 12/24/20 06:54 PT 9.8 Seconds (9.0-12.0) 12/23/20 20:57 INR 1.0 (0.9-1.1) 12/23/20 20:57 APTT 22.9 Seconds (21.0-31.0) 12/23/20 20:57 Hemoglobin A1c 6.9 % (4.5-5.6) H 12/23/20 20:57 12/24/20 12/24/20 11:55 07:24 POC Glucose 131 H 146 H
[2020-12-24] MEDS ORDERED: ATROPINE SULFATE 0.1 MG/ML 10ML SYR IV PRN (14:48)
[2020-12-24] MEDS ORDERED: ONDANSETRON INJ 2 MG/ML 2 ML VIAL IV PRN (14:48)
[2020-12-24] MEDS ORDERED: fentaNYL citrate 100 MCG/2 ML VIAL IV PRN (14:48)
[2020-12-24] MEDS ORDERED: ePHEDrine sulfate 50 MG/ML AMP IV PRN (14:48)
[2020-12-24] MEDS ORDERED: HYDROmorphone INJ 2 MG/ML SYR/VIAL IV PRN (14:48)
[2020-12-24] MEDS ORDERED: PROMETHAZINE HCL 12.5 MG in SODIUM CHLORIDE 0.9% 50 ML IV PRN (14:48)
[2020-12-24] MEDS ORDERED: INDOMETHACIN 50 MG SUPP PR ONE (14:59)
--- NOTE | 2020-12-24 15:00 | History & Physical Bridge Note ---
Date of Service December 24, 2020 History & Physical Bridge Note I have examined the patient, reviewed the History & Physical and in the interval since the performance of the History & Physical I have noted the following changes of clinical significance: no changes noted
--- NOTE | 2020-12-24 15:41 | Urology Consultation ---
Date of Consultation December 24, 2020 Assessment & Plan (1) Renal mass of unknown nature: Please order renal protocol renal mass and if suspicious mass found have pt follow up as outpatient when recovered with urology History of Present Illness Reason for Consultation: possible rnal mass Attending Physician: John William MD History of Present Illness Pt admitted for right upper quadrant pain and elevated liver function studies . An indeterminate right renal lesion found on MRI . Radiology recommended renal protocol CT or MRI . Given last xray was MRI would try CT . Pt undergoing a procedure currently with GI. Allergies Allergy/AdvReac Type Severity Reaction Status Date / Time No Known Allergies Allergy Verified 12/23/20 21:48 Home Medications Medication Instructions Recorded Confirmed Type amlodipine 10 mg PO DAILY 12/23/20 12/23/20 History atorvastatin 80 mg PO DAILY 12/23/20 12/23/20 History buspirone 10 mg PO TID 12/23/20 12/23/20 History lamotrigine 50 mg PO BID 12/23/20 12/23/20 History metoprolol tartrate 50 mg PO BID 12/23/20 12/23/20 History primidone 50 mg PO DAILY 12/23/20 12/23/20 History venlafaxine 50 mg PO DAILY 12/23/20 12/23/20 History Patient History Medical History Coronary artery disease Dyslipidemia Elevated liver function tests History of alcohol abuse Hypertension Mood disorder Obesity Seizure disorder Surgical History H/O heart artery stent History of breast surgery History of History of total abdominal hysterectomy Social History Smoking Status: Current every day smoker Tobacco Type: Cigarettes Cigarettes Per Day: 1; Do You Dip or Chew Tobacco: No; Hx Alcohol Use: No Hx Substance Use: No Preferred Language: Bahraini Communication Ability: Effective Complex Commercial Litigation Paralegal Required: No Beliefs That Will Affect Care: None Current Living Situation: Alone Other Information That Helps Us Care for You: No Feels Safe at Home: Yes Safety Concerns: Feels Safe At This Time Assistive Devices: None Assistive Devices Comment: upper partial Results & Data ([facility]) Vital Signs (Past 12 Hours) Vital Signs Temp Pulse Resp BP Pulse Ox 12/24/20 13:25 37.4 C 92 H 18 118/84 12/24/20 08:20 37.1 C 92 H 18 131/83 92 PG Care Time/CCT Total # of Minutes Spent Total Time Spent with Patient: Total time spent is greater than 50% in coordination of care (as documented) at patient's floor/unit and/or counseling patient: Coding Level of Care Code 46075 Inpt Consult Level 1 Diagnoses Renal mass of unknown nature N28.89
[2020-12-24] MEDS: INDOMETHACIN 50 MG SUPP PR ONE ×2 (15:47→16:28)
[2020-12-24] MEDS ORDERED: SUCCINYLCHOLINE 100MG/5ML SYR IV ONE (16:05)
[2020-12-24] MEDS ORDERED: LARYING-O-JET KIT (LTA) ONE (16:05)
[2020-12-24] MEDS ORDERED: ROCURONIUM BROMIDE 10 MG/ML 5 ML VIAL IV ONE (16:05)
[2020-12-24] MEDS ORDERED: PHENYLEPHRINE 100MCG/ML 5ML SYR ONE (16:05)
--- NOTE | 2020-12-24 16:24 | Operative Report ---
Post Operative Report Pre & Post Diagnosis Operation Date: 12/24/20 09:25 Pre-Op Diagnosis: Elevated Liver function tests with abdominal pain Post-Op Diagnosis: Common bile duct stone I identified the patient and participated in the time-out.: Yes Procedure Operation Date: 12/24/20 09:25 Actual Procedures p Endoscopic Retrograde Cholangiopancreatogram, endoscopic ultrasound(Not Applicable) - Tiffany Schmitz MD Surgeon Tiffany Schmitz MD Inside Phone Sales None Estimated Blood Loss 0 Findings See Below (CBD stone removed, stent placed) Specimens None Description of Procedure EUS/ERCP I attest to the content of the Intraoperative Record and any orders documented therein. Any exceptions are noted below.
--- NOTE | 2020-12-24 16:40 | Fluoroscopy Report ---
[place] ERCP biliary ductal HISTORY: 70 years-old Female ERCP IN OR acute right upper quadrant abdominal pain COMPARISON: MRCP of same day TECHNIQUE: 6 spot fluoroscopic images of the abdominal right upper quadrant were obtained utilizing 3 8.2 seconds fluoroscopy time FINDINGS: Endoscope is noted within the duodenum. Cannulation of the common bile duct with retrograde injection of contrast. Subsequent images demonstrate balloon sweep of the common bile duct. There is no intrah epatic or extrahepatic biliary ductal dilation. No biliary filling defects. Contrast is noted within the duodenum. No contrast extravasation. Nonopacification of the gallbladder. IMPRESSION: Fluoroscopic assistance as above. ACT 112: Negative or not required by law. The above report was generated using voice recognition software. It may contain grammatical, syntax o r spelling errors. Electronically signed by: Juan David Blum M.D. 12/24/2020 4:38 PM
--- NOTE | 2020-12-24 17:00 | GI REPORT ---
Patient Name: Stormy Gloria Procedure Date: 12/24/2020 3:36 PM Date of : 1950 Admit Type: Inpatient Age: 70 Gender: Female Attending MD: Tiffany Schmitz MD Procedure: Upper GI endoscopy Providers: Tiffany Schmitz MD Referring MD: John William Md Indications: Epigastric abdominal pain Medicines: General Anesthesia Complications: No immediate complications. Estimated Blood Loss: Estimated blood loss: none. Procedure: Pre-Anesthesia Assessment: - Prior to the procedure, a History and Physical was performed, and patient medications, allergies and sensitivities were reviewed. The patient's tolerance of previous anesthesia was reviewed. - The risks and benefits of the procedure and the sedation options and risks were discussed with the patient. All questions were answered and informed consent was obtained. - Patient identification and proposed procedure were verified prior to the procedure by the physician and the nurse. The procedure was verified in the procedure room. - Pre-procedure physical examination revealed no contraindications to sedation. After obtaining informed consent, the endoscope was passed under direct vision. Throughout the procedure, the patient's blood pressure, pulse, and oxygen saturations were monitored continuously. The Endoscope was introduced through the mouth, and advanced to the second part of duodenum. The upper GI endoscopy was accomplished without difficulty. The patient tolerated the procedure well. Findings: The examined esophagus was normal. The entire examined stomach was normal. The duodenal bulb and second portion of the duodenum were normal. A large diverticulum was found at the major papilla. Impression: - Normal esophagus. - Normal stomach. - Normal duodenal bulb and second portion of the duodenum. - Duodenal diverticulum. - No specimens collected. Recommendation: - Perform an upper endoscopic ultrasound (UEUS) today. Tiffany Schmitz MD 12/24/2020 4:59:55 PM This report has been signed electronically. Note Initiated On: 12/24/2020 3:36 PM Number of Addenda: 0 I attest to the content of the Intraoperative Record and orders documented therein, exceptions below {[id number]}
--- NOTE | 2020-12-24 17:04 | Anesthesiology Progress Note ---
Date of Service December 24, 2020 Anesthesia Post Procedure Vital Signs Vital Signs: Temp Pulse Pulse Pulse Resp BP BP 12/24/20 16:50 94 H 16 118/82 12/24/20 16:40 100 H 16 119/88 12/24/20 16:32 36.8 C 95 H 16 137/91 12/24/20 13:25 37.4 C 92 H 18 118/84 12/24/20 08:20 37.1 C 92 H 18 131/83 12/24/20 01:57 36.8 C 93 H 20 148/91 H 12/24/20 01:39 36.8 C 93 H 20 148/91 H 12/24/20 00:59 94 H 17 144/89 H 12/24/20 00:00 94 H 22 139/94 12/23/20 23:14 85 17 134/90 12/23/20 22:00 90 17 132/78 12/23/20 21:30 88 18 177/93 H 12/23/20 20:52 36.5 C 100 H 20 172/115 H Pulse Ox 12/24/20 16:50 95 12/24/20 16:40 97 12/24/20 16:32 96 12/24/20 13:25 12/24/20 08:20 92 12/24/20 01:57 94 12/24/20 01:39 94 12/24/20 00:59 98 12/24/20 00:00 98 12/23/20 23:14 93 12/23/20 22:00 96 12/23/20 21:30 98 12/23/20 20:52 96 Pain Intensity Upper Abdomen: Pain Intensity: 4 Transfer of Care Handoff Completed per policy Notes Mental Status: alert / awake / arousable and participated in evaluation Patient Amnestic to Procedure: Yes Nausea / Vomiting: adequately controlled Pain: adequately controlled Airway Patency, RR, SpO2: stable & adequate BP & HR: stable & adequate Hydration State: stable & adequate Anesthetic Complications: no major complications apparent
--- NOTE | 2020-12-24 17:09 | GI REPORT ---
Patient Name: Stormy Gloria Procedure Date: 12/24/2020 3:35 PM Date of : 1950 Admit Type: Inpatient Age: 70 Gender: Female Attending MD: Tiffany Schmitz MD Procedure: Upper EUS Providers: Tiffany Schmitz MD Referring MD: John William Md Indications: Abnormal ultrasound of the abdomen, Elevated liver enzymes, Suspected choledocholithiasis Medicines: General Anesthesia Complications: No immediate complications. Estimated Blood Loss: Estimated blood loss: none. Procedure: Pre-Anesthesia Assessment: - Prior to the procedure, a History and Physical was performed, and patient medications, allergies and sensitivities were reviewed. The patient's tolerance of previous anesthesia was reviewed. - The risks and benefits of the procedure and the sedation options and risks were discussed with the patient. All questions were answered and informed consent was obtained. - Patient identification and proposed procedure were verified prior to the procedure by the physician and the nurse. The procedure was verified in the procedure room. - Pre-procedure physical examination revealed no contraindications to sedation. After obtaining informed consent, the endoscope was passed under direct vision. Throughout the procedure, the patient's blood pressure, pulse, and oxygen saturations were monitored continuously. The Endosonoscope was introduced through the mouth, and advanced to the second part of duodenum. The upper EUS was accomplished without difficulty. The patient tolerated the procedure well. Findings: ENDOSONOGRAPHIC FINDING: : There was no sign of significant endosonographic abnormality in the ampulla. No masses were identified. There was dilation in the common bile duct which measured up to 9 mm. One stone was visualized endosonographically in the common bile duct. It was hyperechoic and characterized by shadowing. Extensive hyperechoic material consistent with sludge was visualized endosonographically in the gallbladder. There was no sign of significant endosonographic abnormality in the visualized portion of the liver. Pancreas divisum was visualized. An anechoic lesion suggestive of a cyst was identified in the pancreatic body. The lesion measured 6 mm in maximal cross-sectional diameter. There was a single compartment without septae. The outer wall of the lesion was thin. There was no associated mass. There was no internal debris within the fluid-filled cavity. There was no sign of significant endosonographic abnormality in the entire pancreas otherwise. The pancreatic duct measured up to 2 mm in diameter. There was no sign of significant endosonographic abnormality in the visualized portion of the left adrenal gland. There was no sign of significant endosonographic abnormality involving the celiac trunk. Impression: - Periampullary diverticulum limiting the exam. - There was no sign of significant pathology in the ampulla. - There was dilation in the common bile duct which measured up to 9 mm. One tiny stone was visualized endosonographically in the common bile duct. - Hyperechoic material consistent with sludge was visualized endosonographically in the gallbladder. - There was no evidence of significant pathology in the visualized portion of the liver. - Pancreas divisum was visualized. - A 6 mm cyst with no worrisome features was seen in the pancreatic body, likely a side branch IPMN. - Endosonographic images of the left adrenal gland were unremarkable. - The celiac trunk was endosonographically normal. Recommendation: - Perform an ERCP today. - Perform magnetic resonance imaging (MRI) with gadolinium in 1 year for surveillance on the pancreatic cyst. Tiffany Schmitz MD 12/24/2020 5:09:24 PM This report has been signed electronically. Note Initiated On: 12/24/2020 3:35 PM Number of Addenda: 0 I attest to the content of the Intraoperative Record and orders documented therein, exceptions below {[id number]}
--- NOTE | 2020-12-24 17:15 | GI REPORT ---
Patient Name: Stormy Gloria Procedure Date: 12/24/2020 3:34 PM Date of : 1950 Admit Type: Inpatient Age: 70 Gender: Female Attending MD: Tiffany Schmitz MD Procedure: ERCP Providers: Tiffany Schmitz MD Referring MD: John William Md Indications: For therapy of bile duct stone(s) Medicines: General Anesthesia, Ancef 1000 mg IV Complications: No immediate complications. Estimated Blood Loss: Estimated blood loss: none. Procedure: Pre-Anesthesia Assessment: - Prior to the procedure, a History and Physical was performed, and patient medications, allergies and sensitivities were reviewed. The patient's tolerance of previous anesthesia was reviewed. - The risks and benefits of the procedure and the sedation options and risks were discussed with the patient. All questions were answered and informed consent was obtained. - Patient identification and proposed procedure were verified prior to the procedure by the physician and the nurse. The procedure was verified in the procedure room. - Pre-procedure physical examination revealed no contraindications to sedation. After obtaining informed consent, the scope was passed under direct vision. Throughout the procedure, the patient's blood pressure, pulse, and oxygen saturations were monitored continuously. The Scope was introduced through the mouth, and advanced to the duodenum and used to inject contrast into the bile duct. The ERCP was accomplished without difficulty. The patient tolerated the procedure well. Findings: The scout executive film was normal. The esophagus was successfully intubated under direct vision. The scope was advanced to a normal major papilla in the descending duodenum without detailed examination of the pharynx, larynx and associated structures, and upper GI tract. The upper GI tract was grossly normal. The major papilla was located entirely within a diverticulum. A 0.035 inch straight standard wire was passed into the biliary tree. The Fusion OMNI sphincterotome was passed over the guidewire and the bile duct was then deeply cannulated. Contrast was injected. I personally interpreted the bile duct images. Ductal flow of contrast was adequate. Image quality was adequate. Contrast extended to the main bile duct. Opacification of the entire biliary tree except for the gallbladder/cystic duct was successful. The maximum diameter of the ducts was 10 mm. The biliary orifice was stenotic. This appeared benign. Biliary sphincterotomy was made with a monofilament traction (standard) sphincterotome using ERBE electrocautery. There was no post-sphincterotomy bleeding. To discover objects, the biliary tree was swept with a 15 mm balloon starting at the bifurcation. Sludge was swept from the duct. One 10 Fr by 7 cm plastic biliary stent with a single external flap and a single internal flap was placed into the common bile duct. Bile flowed through the stent. The stent was in good position. Indomethacin 100 mg was given via suppository to decrease the risk of post-ERCP pancreatitis (PEP). PD was not cannulated. Impression: - The major papilla was located entirely within a diverticulum. - Benign biliary papillary stenosis, treated by a biliary sphincterotomy. - Occluded cystic duct. - The biliary tree was swept and sludge was found. - One plastic biliary stent was placed into the common bile duct. Recommendation: - [facility]. - Avoid aspirin and nonsteroidal anti-inflammatory medicines for 5 days. - IV Cipro. - Clear liquid diet. - Refer to a surgeon for cholecystectomy. - Repeat ERCP in 4 - 6 weeks to remove stent. Tiffany Schmitz MD 12/24/2020 5:14:44 PM This report has been signed electronically. Note Initiated On: 12/24/2020 3:34 PM Number of Addenda: 0 I attest to the content of the Intraoperative Record and orders documented therein, exceptions below {[id number]}
[2020-12-24] MEDS: CIPROFLOXACIN / D5W 400 MG/200 ML BAG IV SCH (18:54)
[2020-12-24] MEDS: PRIMIDONE 50 MG TAB PO SCH (20:54)
[2020-12-24] MEDS ORDERED: COUGH DROP (SUGAR FREE) LOZ 24 LOZ/1 BOX BUCCAL ONE (22:23)
--- NOTE | 2020-12-24 23:32 | Surgery Consultation ---
Date of Consultation December 24, 2020 Assessment & Plan (1) Elevated liver function tests: Patient was noted to have sludge in the gallbladder by endoscopic ultrasound and had sludge in the common bile duct cleared by ERCP. She now will require a laparoscopic cholecystectomy. I explained that to her. I explained the possible need to convert to an open procedure. I explained the possible complications and answered her questions. She has signed a consent form. History of Present Illness Reason for Consultation: Gallbladder sludge and sludge within the common bile duct Requesting Physician: John William MD Attending Physician: John William MD History of Present Illness I have been asked by Dr. Choudhury and Dr. Schmitz to see this 70-year-old female who presented to the emergency room yesterday with a complaint of abdominal pain in the epigastric area. She thought it was cardiac related as she had had similar pain many years ago which proved to be an OR. She had a stent placed at that time. She is no longer on anticoagulation therapy. Her liver function tests were noted to be elevated. She underwent a work-up that demonstrated a mildly dilated common bile duct. She then underwent an ERCP and an endoscopic ultrasound. There was sludge within the common bile duct. A stent was placed after sphincterotomy. She had no nausea with the symptoms. She has not had a change in her bowel habits. She has no fever or chills. The gallbladder did not fill during the ERCP. Allergies Allergy/AdvReac Type Severity Reaction Status Date / Time No Known Allergies Allergy Verified 12/23/20 21:48 Home Medications Medication Instructions Recorded Confirmed Type amlodipine 10 mg PO DAILY 12/23/20 12/23/20 History atorvastatin 80 mg PO DAILY 12/23/20 12/23/20 History buspirone 10 mg PO TID 12/23/20 12/23/20 History lamotrigine 50 mg PO BID 12/23/20 12/23/20 History metoprolol tartrate 50 mg PO BID 12/23/20 12/23/20 History primidone 50 mg PO DAILY 12/23/20 12/23/20 History venlafaxine 50 mg PO DAILY 12/23/20 12/23/20 History Patient History Medical History Coronary artery disease Dyslipidemia Elevated liver function tests History of alcohol abuse Hypertension Mood disorder Obesity Seizure disorder Surgical History H/O heart artery stent History of breast surgery History of History of total abdominal hysterectomy Social History Smoking Status: Current every day smoker Tobacco Type: Cigarettes Cigarettes Per Day: 1; Do You Dip or Chew Tobacco: No; Hx Alcohol Use: No Hx Substance Use: No Preferred Language: Korean Communication Ability: Effective Dry Goods Inspector Required: No Beliefs That Will Affect Care: None Current Living Situation: Alone Other Information That Helps Us Care for You: No Feels Safe at Home: Yes Safety Concerns: Feels Safe At This Time Assistive Devices: None Assistive Devices Comment: upper partial Review of Systems Review of Systems: All systems reviewed & are unremarkable except as noted in HPI & below Physical Exam Constitutional: no acute distress Neck: trachea midline Respiratory: normal respiratory effort, lungs clear to auscultation Cardiovascular: Rate/Rhythm: regular rate and regular rhythm Gastrointestinal (Abdomen): Inspection/Auscultation: normal bowel sounds; abdomen not distended Percussion/Palpation: + abdomen tender (Minimal right upper quadrant tenderness to deep palpation) and abdomen soft Skin: no rashes, warm and dry Results & Data ([facility]) Vital Signs (Past 12 Hours) Vital Signs Temp Pulse Pulse Pulse Resp BP Pulse Ox 12/24/20 20:32 37.0 C 102 H 16 128/78 93 12/24/20 19:29 94 12/24/20 19:28 36.9 C 102 H 16 134/81 85 L 12/24/20 18:18 36.9 C 100 H 16 115/68 95 12/24/20 17:42 36.9 C 99 H 16 127/80 94 12/24/20 17:10 37.5 C 94 H 18 119/70 93 12/24/20 16:50 94 H 16 118/82 95 12/24/20 16:40 100 H 16 119/88 97 12/24/20 16:32 36.8 C 95 H 16 137/91 96 12/24/20 13:25 37.4 C 92 H 18 118/84 Laboratory Results 12/24/20 12/24/20 12/24/20 Range/Units 20:34 17:20 11:55 WBC (4.8-10.8) K/uL RBC (4.2-5.4) M/uL Hgb (12.0-16.0) g/dL Hct (37-47) % MCV (80-100) fL MCH (25-34) pg MCHC (32-36) g/dL RDW Std Deviation (36.4-46.3) fL RDW Coeff of Miquel (11.5-14.5) % Plt Count (130-400) K/uL MPV (7.4-10.4) fL Immature Gran % (Auto) % Neut % (Auto) % Lymph % (Auto) % Perry % (Auto) % Eos % (Auto) % Baso % (Auto) % Neut # (Auto) (1.4-6.5) K/uL Lymph # (Auto) (1.2-3.4) K/uL Perry # (Auto) (0.11-0.59) K/uL Eos # (Auto) (0-0.5) K/uL Baso # (Auto) (0-0.2) K/uL Immature Gran # (Auto) (0.00-0.02) K/uL Sodium (136-145) mmol/L Potassium (3.5-5.1) mmol/L Chloride (98-107) mmol/L Carbon Dioxide (21-32) mmol/L Anion Gap (3-11) BUN (7-18) mg/dl Creatinine (0.6-1.2) mg/dl Est Cr Clr Drug Dosing ml/min Est GFR ( Amer) Est GFR (Non-Af Amer) BUN/Creatinine Ratio (10-20) Glucose (70-99) mg/dl POC Glucose 168 H 110 H 131 H (70-99) mg/dl Estimat Average Glucose mg/dl Hemoglobin A1c (4.5-5.6) % Calcium (8.5-10.1) mg/dl Magnesium (1.8-2.4) mg/dl Total Bilirubin (0.2-1) mg/dl AST (15-37) U/L ALT (12-78) U/L Alkaline Phosphatase (45-117) U/L Total Protein (6.4-8.2) gm/dl Albumin (3.4-5.0) gm/dl Globulin (2.5-4.0) gm/dl Albumin/Globulin Ratio (0.9-2) Lipase (73-393) U/L SARS-CoV-2, RNA, NAAT (NEGATIVE) 12/24/20 12/24/20 12/24/20 Range/Units 07:24 06:54 06:54 WBC 7.30 (4.8-10.8) K/uL RBC 4.50 (4.2-5.4) M/uL Hgb 13.7 (12.0-16.0) g/dL Hct 40.6 (37-47) % MCV 90.2 (80-100) fL MCH 30.4 (25-34) pg MCHC 33.7 (32-36) g/dL RDW Std Deviation 45.3 (36.4-46.3) fL RDW Coeff of Miquel 13.7 (11.5-14.5) % Plt Count 203 (130-400) K/uL MPV 10.4 (7.4-10.4) fL Immature Gran % (Auto) 0.1 % Neut % (Auto) 82.3 % Lymph % (Auto) 8.2 % Perry % (Auto) 8.6 % Eos % (Auto) 0.7 % Baso % (Auto) 0.1 % Neut # (Auto) 6.00 (1.4-6.5) K/uL Lymph # (Auto) 0.60 L (1.2-3.4) K/uL Perry # (Auto) 0.63 H (0.11-0.59) K/uL Eos # (Auto) 0.05 (0-0.5) K/uL Baso # (Auto) 0.01 (0-0.2) K/uL Immature Gran # (Auto) 0.01 (0.00-0.02) K/uL Sodium 137 (136-145) mmol/L Potassium 4.0 (3.5-5.1) mmol/L Chloride 105 (98-107) mmol/L Carbon Dioxide 24 (21-32) mmol/L Anion Gap 8.0 (3-11) BUN 14 (7-18) mg/dl Creatinine 0.77 (0.6-1.2) mg/dl Est Cr Clr Drug Dosing 58.7 ml/min Est GFR ( Amer) 89.4 Est GFR (Non-Af Amer) 77.1 BUN/Creatinine Ratio 18.3 (10-20) Glucose 162 H (70-99) mg/dl POC Glucose 146 H (70-99) mg/dl Estimat Average Glucose mg/dl Hemoglobin A1c (4.5-5.6) % Calcium 9.2 (8.5-10.1) mg/dl Magnesium (1.8-2.4) mg/dl Total Bilirubin 2.3 H D (0.2-1) mg/dl AST 1925 H (15-37) U/L ALT 1500 H (12-78) U/L Alkaline Phosphatase 291 H (45-117) U/L Total Protein 7.0 (6.4-8.2) gm/dl Albumin 3.7 (3.4-5.0) gm/dl Globulin 3.3 (2.5-4.0) gm/dl Albumin/Globulin Ratio 1.1 (0.9-2) Lipase (73-393) U/L SARS-CoV-2, RNA, NAAT (NEGATIVE) 12/24/20 12/23/20 12/23/20 Range/Units 02:21 23:20 20:57 WBC (4.8-10.8) K/uL RBC (4.2-5.4) M/uL Hgb (12.0-16.0) g/dL Hct (37-47) % MCV (80-100) fL MCH (25-34) pg MCHC (32-36) g/dL RDW Std Deviation (36.4-46.3) fL RDW Coeff of Miquel (11.5-14.5) % Plt Count (130-400) K/uL MPV (7.4-10.4) fL Immature Gran % (Auto) % Neut % (Auto) % Lymph % (Auto) % Perry % (Auto) % Eos % (Auto) % Baso % (Auto) % Neut # (Auto) (1.4-6.5) K/uL Lymph # (Auto) (1.2-3.4) K/uL Perry # (Auto) (0.11-0.59) K/uL Eos # (Auto) (0-0.5) K/uL Baso # (Auto) (0-0.2) K/uL Immature Gran # (Auto) (0.00-0.02) K/uL Sodium (136-145) mmol/L Potassium (3.5-5.1) mmol/L Chloride (98-107) mmol/L Carbon Dioxide (21-32) mmol/L Anion Gap (3-11) BUN (7-18) mg/dl Creatinine (0.6-1.2) mg/dl Est Cr Clr Drug Dosing ml/min Est GFR ( Amer) Est GFR (Non-Af Amer) BUN/Creatinine Ratio (10-20) Glucose (70-99) mg/dl POC Glucose 160 H (70-99) mg/dl Estimat Average Glucose 151 mg/dl Hemoglobin A1c 6.9 H (4.5-5.6) % Calcium (8.5-10.1) mg/dl Magnesium (1.8-2.4) mg/dl Total Bilirubin (0.2-1) mg/dl AST (15-37) U/L ALT (12-78) U/L Alkaline Phosphatase (45-117) U/L Total Protein (6.4-8.2) gm/dl Albumin (3.4-5.0) gm/dl Globulin (2.5-4.0) gm/dl Albumin/Globulin Ratio (0.9-2) Lipase (73-393) U/L SARS-CoV-2, RNA, NAAT NEGATIVE (NEGATIVE) 12/23/20 Range/Units 20:57 WBC (4.8-10.8) K/uL RBC (4.2-5.4) M/uL Hgb (12.0-16.0) g/dL Hct (37-47) % MCV (80-100) fL MCH (25-34) pg MCHC (32-36) g/dL RDW Std Deviation (36.4-46.3) fL RDW Coeff of Miquel (11.5-14.5) % Plt Count (130-400) K/uL MPV (7.4-10.4) fL Immature Gran % (Auto) % Neut % (Auto) % Lymph % (Auto) % Perry % (Auto) % Eos % (Auto) % Baso % (Auto) % Neut # (Auto) (1.4-6.5) K/uL Lymph # (Auto) (1.2-3.4) K/uL Perry # (Auto) (0.11-0.59) K/uL Eos # (Auto) (0-0.5) K/uL Baso # (Auto) (0-0.2) K/uL Immature Gran # (Auto) (0.00-0.02) K/uL Sodium (136-145) mmol/L Potassium (3.5-5.1) mmol/L Chloride (98-107) mmol/L Carbon Dioxide (21-32) mmol/L Anion Gap (3-11) BUN (7-18) mg/dl Creatinine (0.6-1.2) mg/dl Est Cr Clr Drug Dosing ml/min Est GFR ( Amer) Est GFR (Non-Af Amer) BUN/Creatinine Ratio (10-20) Glucose (70-99) mg/dl POC Glucose (70-99) mg/dl Estimat Average Glucose mg/dl Hemoglobin A1c (4.5-5.6) % Calcium (8.5-10.1) mg/dl Magnesium 1.8 (1.8-2.4) mg/dl Total Bilirubin (0.2-1) mg/dl AST (15-37) U/L ALT (12-78) U/L Alkaline Phosphatase (45-117) U/L Total Protein (6.4-8.2) gm/dl Albumin (3.4-5.0) gm/dl Globulin (2.5-4.0) gm/dl Albumin/Globulin Ratio (0.9-2) Lipase 381 (73-393) U/L SARS-CoV-2, RNA, NAAT (NEGATIVE)
[2020-12-25] MEDS ORDERED: Nursing to Pharmacy Communication SCH ×3 (01:45→18:45)
[2020-12-25] MEDS: oxyCODONE HCL IR 5 MG TAB (IMMEDIATE RELEASE) PO PRN (04:20)
[2020-12-25] MEDS: CIPROFLOXACIN / D5W 400 MG/200 ML BAG IV SCH ×2 (05:44→16:56)
[2020-12-25] MEDS: INSULIN ASPART 100 UNITS/ML 3 ML PEN SC SCH ×4 (06:31→21:08)
[2020-12-25 07:21] LABS: Hematocrit (blood only) 43.9 % (37-47); Hemoglobin 14.3 g/dL (12.0-16.0); Mean Corpuscular Hemoglobin 30.4 pg (25-34); Mean Corpuscular Hgb Conc 32.6 g/dL (32-36); Mean Corpuscular Volume 93.4 fL (80-100); Mean Platelet Volume 10.7 fL (7.4-10.4); Platelet Count 170 K/uL (130-400); RDW Coefficient of Variation 14.2 % (11.5-14.5); RDW Standard Deviation 48.8 fL (36.4-46.3); White Blood Count 8.18 K/uL (4.8-10.8)
[2020-12-25 07:56] LABS: Albumin Level 3.5 gm/dl (3.4-5.0); BUN Creatinine Ratio 9.2 (10-20); Bilirubin,Total 1.1 mg/dl (0.2-1); Calcium 9.2 mg/dl (8.5-10.1); Creatinine Clr Calc Pharmacy 65.5 ml/min; Est GFR (African American) 100.8; Globulin 3.7 gm/dl (2.5-4.0); Magnesium 2.2 mg/dl (1.8-2.4); Total Protein 7.2 gm/dl (6.4-8.2)
[2020-12-25] MEDS: ENOXAPARIN INJ 40 MG/0.4 ML SYR SQ SCH (08:36)
--- NOTE | 2020-12-25 08:45 | Anesthesiology Consultation ---
Date of Service December 25, 2020 Assessment & Plan (1) Encounter for pre-operative examination: Chart Review Chart Review: Acceptable Risk for Surgery and Patient NOT seen in Pre Admission Testing Consults Requested none History Surgery Operation Date: 12/24/20 09:25 Proposed Procedures p Endoscopic Retrograde Cholangiopancreato - Tiffany Schmitz MD Operation Date: 12/25/20 09:40 Proposed Procedures p Laparoscopic Cholecystectomy - Bassam Logan MD Height/Weight Height: 5 ft Weight: 72.4 kg Allergies Allergy/AdvReac Type Severity Reaction Status Date / Time No Known Allergies Allergy Verified 12/23/20 21:48 Medications Home Medications Medication Instructions Recorded Confirmed Last Taken amlodipine 10 mg PO DAILY 12/23/20 12/23/20 12/23/20 atorvastatin 80 mg PO DAILY 12/23/20 12/23/20 12/23/20 buspirone 10 mg PO TID 12/23/20 12/23/20 12/23/20 lamotrigine 50 mg PO BID 12/23/20 12/23/20 12/23/20 metoprolol tartrate 50 mg PO BID 12/23/20 12/23/20 12/23/20 primidone 50 mg PO DAILY 12/23/20 12/23/20 12/23/20 venlafaxine 50 mg PO DAILY 12/23/20 12/23/20 12/23/20 Active Medications Generic Name Dose Route Start Last Admin Trade Name Freq PRN Reason Stop Dose Admin Amlodipine Besylate 10 mg 12/24/20 09:00 12/24/20 07:18 Amlodipine Besylate 5 Mg Tab PO 01/23/21 08:59 10 mg DAILY CHINO Administration Buspirone HCl 10 mg 12/24/20 09:00 12/24/20 20:53 Buspirone 5 Mg Tab PO 01/23/21 08:59 10 mg TID CHINO Administration Enoxaparin Sodium 40 mg 12/24/20 09:00 12/25/20 08:36 Enoxaparin Inj 40 Mg/0.4 Ml Syr SQ 01/23/21 08:59 Not Given QAM CHINO Potassium Chloride 40 meq/ 1,020 mls @ 60 mls/hr 12/24/20 02:00 12/25/20 08:37 Sodium Chloride IV 01/23/21 01:59 60 mls/hr .Q17H CHINO Infusion Promethazine HCl 12.5 mg/ 50.5 mls @ 202 mls/hr 12/24/20 01:39 12/24/20 02:51 Sodium Chloride IV 01/23/21 01:38 Infused Q6H PRN Infusion Nausea And Vomiting Ciprofloxacin 400 mg in 200 mls @ 100 mls/hr 12/24/20 17:00 12/25/20 08:19 Cipro / D5w IV 01/03/21 16:59 Infused Q12H CHINO Infusion Protocol Insulin Aspart 0 units 12/25/20 06:00 12/25/20 06:31 Insulin Aspart 100 Units/Ml 3 Ml Pen SC 01/24/21 05:59 Not Given Q6 CHINO Lamotrigine 50 mg 12/24/20 09:00 12/24/20 20:53 Lamotrigine 25 Mg Tab PO 01/23/21 08:59 50 mg BID CHINO Administration Metoprolol Tartrate 50 mg 12/24/20 01:50 12/24/20 20:53 Metoprolol Tartrate 50 Mg Tab PO 01/23/21 01:49 50 mg BID CHINO Administration Morphine Sulfate 2 mg 12/24/20 08:20 12/25/20 08:34 Morphine Sulfate 4 Mg/Ml 1 Ml Carp\Vial IV 01/07/21 01:38 2 mg Q4H PRN Administration Pain Oxycodone HCl 5 - 10 mg 12/24/20 01:39 12/25/20 04:20 Oxycodone Hcl Ir 5 Mg Tab (Immediate Release) PO 01/07/21 01:38 5 mg QID PRN Administration Pain Primidone 50 mg 12/24/20 21:00 12/24/20 20:54 Primidone 50 Mg Tab PO 01/23/21 20:59 50 mg HS CHINO Administration Venlafaxine HCl 50 mg 12/24/20 09:00 12/24/20 07:18 Venlafaxine Hcl 50 Mg Tab PO 01/23/21 08:59 50 mg DAILY CHINO Administration NPO Date Last Intake of Fluids: 12/24/20 Time Last Intake of Fluids: 23:59 Last Intake of Fluids Comment: ice chips this AM Date Last Intake of Solids: 12/23/20 Time Last Intake of Solids: 17:00 Last Intake of Solids Comment: on Clear Liquid diet prior to NPO Past Medical History Medical History Coronary artery disease Dyslipidemia Elevated liver function tests History of alcohol abuse Hypertension Mood disorder Obesity Seizure disorder Past Surgical History Surgical History H/O heart artery stent History of breast surgery History of History of total abdominal hysterectomy Social History Smoking Status: Current every day smoker tobacco type: cigarettes Smoking cigarettes per day: 1 Do You Dip or Chew Tobacco: No Hx Alcohol Use: No Hx Substance Use: No substance use type: does not use Physical Exam Vital Signs Last Vital Signs Temp 36.9 C 12/25/20 07:58 Pulse 101 H 12/25/20 07:58 Resp 18 12/25/20 07:58 BP 130/82 12/25/20 07:58 Pulse Ox 93 12/25/20 08:37 Testing Laboratory Results 12/25/20 06:41 12/25/20 06:41 PT 9.8 Seconds (9.0-12.0) 12/23/20 20:57 INR 1.0 (0.9-1.1) 12/23/20 20:57 APTT 22.9 Seconds (21.0-31.0) 12/23/20 20:57 Hemoglobin A1c 6.9 % (4.5-5.6) H 12/23/20 20:57 12/25/20 12/24/20 05:37 20:34 POC Glucose 108 H 168 H Electrocardiogram Date: 12/23/20 Findings: + ST @ (103)
[2020-12-25] MEDS: busPIRone 5 MG TAB PO SCH ×3 (09:07→21:07)
[2020-12-25] MEDS: lamoTRIgine 25 MG TAB PO SCH ×2 (09:07→21:07)
[2020-12-25] MEDS: METOPROLOL TARTRATE 50 MG TAB PO SCH ×3 (09:07→21:28)
[2020-12-25] MEDS: amLODIPine BESYLATE 5 MG TAB PO SCH ×2 (09:07→16:31)
[2020-12-25] MEDS: VENLAFAXINE HCL 50 MG TAB PO SCH (09:07)
--- NOTE | 2020-12-25 09:15 | XRay Report ---
XR chest 1V portable HISTORY: 70 years-old Female Hypoxia acute hypoxia COMPARISON: Chest radiographs 12/23/2020 TECHNIQUE: Portable AP view of the chest FINDINGS: Cardiomediastinal and hilar silhouettes are unchanged. Calcified plaque of the thoracic aortic arch. Mild left lung base opacities with unchanged blunting of the costophrenic angles. No pneumothorax or overt pulmonary edema. Bones appear grossly intact. IMPRESSION: 1. Mild left lung base opacities suggestive of atelectasis. 2. Cardiomegaly. ACT 112: Negative or not required by law. The above report was generated using voice recognition software. It may contain grammatical, syntax o r spelling errors. Electronically signed by: Juan David Blum M.D. 12/25/2020 9:13 AM
--- NOTE | 2020-12-25 09:55 | Surgery Progress Note ---
Date of Service December 25, 2020 Assessment & Plan (1) Elevated liver function tests: Planning for laparoscopic cholecystectomy later today Discussed procedure possible complications yesterday and patient is ready for the procedure Admission and Anticipated Discharge Date Admission Date: December 24, 2020 Subjective Has very little pain today Denies nausea and vomiting Results & Data ([facility]) Vital Signs (Past 12 Hours) Vital Signs Temp Pulse Resp BP Pulse Ox 12/25/20 08:37 93 12/25/20 07:58 36.9 C 101 H 18 130/82 96 12/25/20 03:55 36.8 C 95 H 18 128/78 96 12/24/20 23:29 36.9 C 86 18 122/78 91
[2020-12-25] MEDS ORDERED: HEPARIN (PORCINE) 1000 UNIT/ML 10 ML (CATH LAB USE ONLY) ONE (10:33)
[2020-12-25] MEDS ORDERED: BUPIVACAINE 0.5 % 5 MG/1 ML MPF 30ML VIAL ONE (10:33)
[2020-12-25] MEDS ORDERED: ONDANSETRON INJ 2 MG/ML 2 ML VIAL IV PRN (11:02)
[2020-12-25] MEDS ORDERED: ePHEDrine sulfate 50 MG/ML AMP IV PRN (11:02)
[2020-12-25] MEDS ORDERED: ATROPINE SULFATE 0.1 MG/ML 10ML SYR IV PRN (11:02)
[2020-12-25] MEDS ORDERED: fentaNYL citrate 100 MCG/2 ML VIAL ONE ×2 (11:16→12:00)
[2020-12-25] MEDS ORDERED: GLYCOPYRROLATE 0.2 MG/ML VIAL ONE (12:00)
[2020-12-25] MEDS ORDERED: PROPOFOL IV EMULSION 10 MG/ML 20 ML VIAL IV ONE (12:00)
[2020-12-25] MEDS ORDERED: ONDANSETRON INJ 2 MG/ML 2 ML VIAL ONE (12:00)
[2020-12-25] MEDS ORDERED: LIDOCAINE HCL 2% 2 ML VIAL/AMP(20MG/ML) INFIL ONE (12:00)
[2020-12-25] MEDS ORDERED: NEOSTIGMINE METHYLSULFATE 5 MG/5 ML SYR ONE (12:00)
[2020-12-25] MEDS ORDERED: METOPROLOL TARTRATE 1 MG/ML VIAL IV ONE (12:00)
[2020-12-25] MEDS ORDERED: ROCURONIUM BROMIDE 10 MG/ML 5 ML VIAL IV ONE (12:00)
[2020-12-25] MEDS ORDERED: DEXAMETHASONE SOD INJ 4 MG/ML VIAL ONE (12:00)
--- NOTE | 2020-12-25 12:53 | Post Operative Brief Note ---
Immediate Post Op Note v1 Date of Surgery December 25, 2020 Pre & Post Diagnosis Operation Date: 12/24/20 09:25 Pre-Op Diagnosis: Elevated Liver function tests with abdominal pain Post-Op Diagnosis: Common bile duct stone Operation Date: 12/25/20 09:40 Pre-Op Diagnosis: acute cholecystitis Post-Op Diagnosis: acute cholecystitis I identified the patient and participated in the time-out.: Yes Procedure Operation Date: 12/24/20 09:25 Actual Procedures p Endoscopic Retrograde Cholangiopancreatogram, endoscopic ultrasound(Not Applicable) - Tiffany Schmitz MD Operation Date: 12/25/20 09:40 Actual Procedures p Laparoscopic Cholecystectomy(Not Applicable) - Bassam Logan MD Surgeon Bassam Logan MD Filling Operator None Estimated Blood Loss 8 Findings Consistent with Post-Op Diagnosis
[2020-12-25] MEDS: fentaNYL citrate 100 MCG/2 ML VIAL IV PRN ×2 (13:15→13:44)
--- NOTE | 2020-12-25 13:38 | Anesthesiology Progress Note ---
Date of Service December 25, 2020 Anesthesia Post Procedure Vital Signs Vital Signs: Temp Pulse Pulse Resp BP Pulse Ox 12/25/20 13:30 37.0 C 93 H 13 134/82 95 12/25/20 13:20 96 H 12 145/84 H 98 12/25/20 13:10 91 H 20 155/84 H 99 12/25/20 13:04 36.2 C L 93 H 17 154/99 H 95 12/25/20 08:37 93 12/25/20 07:58 36.9 C 101 H 18 130/82 96 12/25/20 03:55 36.8 C 95 H 18 128/78 96 12/24/20 23:29 36.9 C 86 18 122/78 91 12/24/20 20:32 37.0 C 102 H 16 128/78 93 12/24/20 19:29 94 12/24/20 19:28 36.9 C 102 H 16 134/81 85 L 12/24/20 18:18 36.9 C 100 H 16 115/68 95 12/24/20 17:42 36.9 C 99 H 16 127/80 94 12/24/20 17:10 37.5 C 94 H 18 119/70 93 12/24/20 16:50 94 H 16 118/82 95 12/24/20 16:40 100 H 16 119/88 97 12/24/20 16:32 36.8 C 95 H 16 137/91 96 Pain Intensity Upper Abdomen: Pain Intensity: 3 Head: Pain Intensity: 8 Transfer of Care Handoff Completed per policy Notes Mental Status: alert / awake / arousable and participated in evaluation Patient Amnestic to Procedure: Yes Nausea / Vomiting: adequately controlled Pain: adequately controlled Airway Patency, RR, SpO2: stable & adequate BP & HR: stable & adequate Hydration State: stable & adequate Anesthetic Complications: no major complications apparent and Pt Satisfied with anesthetic care
[2020-12-25] MEDS: PROMETHAZINE HCL 12.5 MG in SODIUM CHLORIDE 0.9% 50 ML IV PRN (16:33)
--- NOTE | 2020-12-25 16:51 | Hospitalist Progress Note ---
Date of Service December 25, 2020 Assessment & Plan (1) Elevated liver function tests: Choledocholithiasis Biliary papillary stenosis S/P biliary sphincterotomy and stent placement Transaminitis S/P laparoscopic cholecystectomy POD#1 -Gall Bladder:Mildly distended gallbladder containing sludge. No shadowing calculi identified. Mildly dilated common bile duct measuring 9 mm in maximal diameter. Possible hepatic steatosis. 5 mm cystic lesion within the pancreatic neck possibly representing an IPMN -MRCP:Distended gallbladder with layering sludge versus cholelithiasis. No biliary ductal dilation or choledocholithiasis identified. 7 mm cystic lesion of the peripancreatic neck is suggestive of a sidebranch IPMN. Bilateral renal cysts with a 2.1 x 1.8 cm lesion of the posterior interpolar right kidney suspicious for renal cell carcinoma. Correlation with a CT or MRI renal mass protocol study recommended. --ERCP: The major papilla was located entirely within a diverticulum. Benign biliary papillary stenosis, treated by a biliary sphincterotomy. Occluded cystic duct. The biliary tree was swept and sludge was found. One plastic biliary stent was placed into the common bile duct. -H/O prior Alcohol use--currently denies use -Hold Statin for now -Admits to taking Tylenol daily -Avoid Hepatotoxic agents -Monitor LFTs -Appreciate GI/Surgery Input -Advance diet as tolerated -LFTs trending down -Continue IV ciprofloxacin as per GI Renal Lesion Suspicious for renal cell carcinoma H/O Tobacco use Incidental finding on MRCP Appreciate Urology Input We will obtain renal CT tomorrow May need urology follow-up as outpatient Hypoxia Likely secondary to atelectasis CXR:Mild left lung base opacities suggestive of atelectasis. 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 DVT Px: Lovenox SQ Code Status Full code Disposition Expect to discharge home when medically stable Admission and Anticipated Discharge Date Admission Date: December 24, 2020 Subjective Patient is seen and examined at bedside Patient had laparoscopic cholecystectomy earlier today Complains of pain at surgical site postop Currently not tolerated diet as per RN Missed her morning metoprolol dose, found to be tachycardic Also noted hypoxia, chest x-ray suggestive of atelectasis Denies chest pain, dizziness, dyspnea Review of Systems Review of Systems: All systems reviewed & are unremarkable except as noted in HPI & below Physical Exam Physical Exam: Physical Exam: Vitals signs as noted above General Appearance:Moderately built and nourished, no apparent distress Head: normocephalic, Atraumatic Eyes: normal inspection, EOMI Neck: supple, Trachea midline Respiratory/Chest: Normal breath sounds, CTA Cardiovascular: S1, S2, No murmur, +Tachycardic Abdomen/GI:Soft, tender, +surgical scars, Bowel sounds present Extremities/Musculoskelatal:normal inspection, B/L LE edema Neurologic/Psych:AAOX3, grossly no focal neurological deficits Skin: normal color, warm Results & Data Results & Data ([facility]) Vital Signs (Past 12 Hours) Vital Signs Temp Pulse Pulse Pulse Resp BP Pulse Ox 12/25/20 16:23 37.5 C 122 H 18 145/89 H 93 12/25/20 15:12 37.1 C 112 H 20 136/86 91 12/25/20 14:41 36.5 C 102 H 20 142/84 H 91 12/25/20 14:17 36.9 C 102 H 22 130/82 93 12/25/20 14:00 95 H 18 120/74 95 12/25/20 13:50 99 H 20 137/83 97 12/25/20 13:40 95 H 21 138/85 93 12/25/20 13:30 37.0 C 93 H 13 134/82 95 12/25/20 13:20 96 H 12 145/84 H 98 12/25/20 13:10 91 H 20 155/84 H 99 12/25/20 13:04 36.2 C L 93 H 17 154/99 H 95 12/25/20 08:37 93 12/25/20 07:58 36.9 C 101 H 18 130/82 96 Laboratory Results Short CBC 12/25/20 Range/Units 06:41 WBC 8.18 (4.8-10.8) K/uL Hgb 14.3 (12.0-16.0) g/dL Hct 43.9 (37-47) % Plt Count 170 (130-400) K/uL BMP 12/25/20 06:41 Sodium 139 Potassium 4.0 Chloride 105 Carbon Dioxide 30 BUN 6 L D Creatinine 0.69 Glucose 127 H Calcium 9.2 Liver Function 12/25/20 Range/Units 06:41 Total Bilirubin 1.1 H D (0.2-1) mg/dl AST 492 H (15-37) U/L ALT 790 H (12-78) U/L Alkaline Phosphatase 283 H (45-117) U/L Albumin 3.5 (3.4-5.0) gm/dl
[2020-12-25] MEDS ORDERED: PIPERACILL/TAZOBAC CONSULT ACTIVE PRN (18:08)
--- NOTE | 2020-12-25 18:18 | Operative Report (OR) ---
DATE OF OPERATION: 12/25/2020 PREOPERATIVE DIAGNOSES: Cholecystitis, status post endoscopic retrograde cholangiopancreatography for choledocholithiasis. POSTOPERATIVE DIAGNOSES: Cholecystitis, status post endoscopic retrograde cholangiopancreatography for choledocholithiasis. PROCEDURE: Laparoscopic cholecystectomy. SURGEON: Bassam Logan MD. FINDINGS: The gallbladder was significantly dilated. The wall was only very mildly thickened; however. The cystic duct was mildly dilated. There were multiple adhesions to the gallbladder and to the liver, lateral and medial with the gallbladder. There were adhesions that were flimsy over the neck of the gallbladder and duodenum. Those were able to be taken down bluntly. The liver was of normal size and contour. The visible bowel appeared normal. TECHNIQUE: The patient was given a general anesthetic and the area was prepped and draped in the usual sterile fashion. The site for the infraumbilical incision was chosen. The skin was anesthetized with 0.5% Marcaine. Skin incision was made and was carried down through the subcutaneous tissue to the fascia which was grasped with 2 Alba clamps and incised between. The peritoneum was identified, incised and introducer was placed bluntly. The abdomen was then insufflated to a pressure of 15 mmHg with carbon dioxide. When I put the introducer it appeared that she had adhesions to the anterior abdominal wall, but I was just below the omentum. I pulled that introducer back and then it exposed the abdominal cavity. The sites for the upper midline, midclavicular and anterior axillary introducers were placed under direct vision through small skin incisions. The patient was placed in steep reverse Trendelenburg and then airplane left position. The gallbladder could not be grasped and so was drained with the drainage needle placed into the abdomen under direct vision. I was then able to grasp the fundus of the gallbladder. There were thickened adhesions of the omentum to the fundus and body area. Those were taken down using cautery. Once the thickened adhesions were taken down, the remainder were much more flimsy and those were along the body and then down towards the cystic duct. The adhesions of the omentum to the liver were thickened as well and those were taken down so as to not tear the capsule with retraction on the gallbladder. That was done with cautery. That allowed me to expose the neck of the gallbladder. I was able to open the peritoneum on the lateral side and peeled it down towards the common bile duct and then dissect that portion of the gallbladder away from the liver. I then worked towards the medial side and opened the triangle of Calot and then opened some thickened connective tissue anteriorly which exposed the anterior surface of the cystic duct. Further dissection of the neck of the gallbladder away from the liver was performed to create an adequate window. There were still some adhesions of thickened tissue that were taken down to further skeletonize the cystic duct and allow me then to absolutely confidently identify the cystic duct gallbladder junction. There was a lot of edema in those tissues which helped with separation of the tissues and to identify structures. Two clips were placed on the proximal cystic duct, one near the gallbladder and it was divided. That was elevated. There were then 2 branches of the cystic artery that were each isolated individually, clipped twice proximally and once near the gallbladder and divided. The gallbladder was then peeled off the liver bed using electrocautery. It was placed into an Endobag and brought out through the upper midline incision. I had to open the gallbladder further on the outside and extract more bowel in order to get the gallbladder out, but that was accomplished. That introducer was replaced. The subdiaphragmatic and subhepatic spaces were irrigated. There was a small amount of oozing from one area in the gallbladder bed, but that was easily controlled with cautery. Further irrigation was performed and irrigation was removed and then it was repeated until the return was clear. The gallbladder bed of the liver was again inspected and there was no further bleeding. The previously placed clips were inspected and were intact. The gas was allowed to escape and the introducers were removed. The fascia of the umbilical and upper midline introducer sites was closed with interrupted 0 Vicryl and skin of all the incisions was closed with 4-0 Monocryl in either an interrupted or running subcuticular fashion. The skin was cleansed, dried, benzoin placed, Steri-Strips applied. Estimated blood loss was 8 mL. Sponge, needle and instrument counts were correct prior to closure. The patient tolerated the surgical procedure without complication and was transferred to recovery. I attest to the content of the Intraoperative Record and any orders documented therein. Any exceptions are noted below. BOB
[2020-12-25] MEDS ORDERED: PIPERACILLIN/TAZOBACTAM 3.375 GM in DEXTROSE 5% 100 ML IV ONE (18:30)
[2020-12-25] MEDS: ACETAMINOPHEN 325 MG TAB PO PRN (19:23)
[2020-12-25] MEDS: PRIMIDONE 50 MG TAB PO SCH (21:07)
[2020-12-25] MEDS: oxyCODONE/ACETAMINOPHEN 5mg/325mg TAB PO PRN (21:51)
[2020-12-25] MEDS: POTASSIUM CHLORIDE 40 MEQ in SODIUM CHLORIDE 0.9% 1000ML 1,000 ML IV SCH (22:16)
[2020-12-25] MEDS: PIPERACILLIN/TAZOBACTAM 3.375 GM in DEXTROSE 5% 100 ML IV SCH (23:43)
[2020-12-26] MEDS: ACETAMINOPHEN 325 MG TAB PO PRN ×3 (04:15→17:03)
[2020-12-26 06:49] LABS: Hematocrit (blood only) 39.1 % (37-47); Mean Corpuscular Hemoglobin 30.3 pg (25-34); Mean Corpuscular Hgb Conc 33.2 g/dL (32-36); Mean Corpuscular Volume 91.1 fL (80-100); Mean Platelet Volume 10.7 fL (7.4-10.4); Platelet Count 166 K/uL (130-400); RDW Coefficient of Variation 14.1 % (11.5-14.5); RDW Standard Deviation 46.9 fL (36.4-46.3); Red Blood Count 4.29 M/uL (4.2-5.4); White Blood Count 9.57 K/uL (4.8-10.8)
[2020-12-26] MEDS: PIPERACILLIN/TAZOBACTAM 3.375 GM in DEXTROSE 5% 100 ML IV SCH ×3 (07:14→22:31)
[2020-12-26 07:15] LABS: Albumin Level 2.9 gm/dl (3.4-5.0); BUN Creatinine Ratio 10.4 (10-20); Calcium 9.5 mg/dl (8.5-10.1); Est GFR (Non-African American) 90.6; Potassium 3.8 mmol/L (3.5-5.1)
[2020-12-26 07:18] LABS: Albumin Globulin Ratio 0.8 (0.9-2); Globulin 3.6 gm/dl (2.5-4.0); Total Protein 6.5 gm/dl (6.4-8.2)
[2020-12-26] MEDS ORDERED: OPTIRAY 320 100ml IV ONE (08:40)
[2020-12-26] MEDS: METOPROLOL TARTRATE 50 MG TAB PO SCH ×2 (09:21→20:56)
[2020-12-26] MEDS: busPIRone 5 MG TAB PO SCH ×3 (09:21→20:56)
[2020-12-26] MEDS: VENLAFAXINE HCL 50 MG TAB PO SCH (09:21)
[2020-12-26] MEDS: lamoTRIgine 25 MG TAB PO SCH ×2 (09:22→20:56)
[2020-12-26] MEDS: ENOXAPARIN INJ 40 MG/0.4 ML SYR SQ SCH (09:22)
[2020-12-26] MEDS: INSULIN ASPART 100 UNITS/ML 3 ML PEN SC SCH ×4 (09:26→20:58)
--- NOTE | 2020-12-26 11:27 | Surgery Progress Note ---
Date of Service December 26, 2020 Assessment & Plan (1) Elevated liver function tests: Postoperative day 1 status post laparoscopic cholecystectomy Doing well postoperatively Tolerating diet From surgical standpoint can discharge to home when okay with internal medicine and GI Discussed postoperative activity restrictions Can follow-up with me in 2 weeks. Admission and Anticipated Discharge Date Admission Date: December 24, 2020 Subjective Postoperative day #1 status post laparoscopic cholecystectomy, postoperative day #2 status post ERCP Having mild soreness Denies nausea and vomiting Tolerated diet Physical Exam Gastrointestinal (Abdomen): Inspection/Auscultation: normal bowel sounds and + abdominal surgical incision (All are clean, dry and intact); abdomen not distended Percussion/Palpation: + abdomen tender (Mild incisional) and abdomen soft Results & Data ([facility]) Vital Signs (Past 12 Hours) Vital Signs Temp Pulse Resp BP BP Pulse Ox 12/26/20 11:08 94 12/26/20 08:22 36.7 C 95 H 18 137/83 97 12/26/20 04:00 36.6 C 86 18 148/98 H 94 12/25/20 22:43 37.3 C 86 16 116/75 94
--- NOTE | 2020-12-26 11:40 | CT Scan Report ---
CT SCAN OF THE ABDOMEN COMBO RENAL MASS PROTOCOL CLINICAL HISTORY: Follow-up right renal lesion. COMPARISON STUDY: MRCP dated 12/24/2020. Abdominal ultrasound dated 12/23/2020. TECHNIQUE: Before and following the IV administration of 94 cc of Optiray 320, CT scan of the abdome n is performed from the lung bases to the pelvic inlet using the renal mass protocol. Images are revi ewed in the axial, sagittal, and coronal planes. IV contrast was administered without complication. A dose lowering technique was utilized adhering to the principles of ALARA. CT DOSE: 824.98 mGy.cm FINDINGS: Lung bases: The heart is mildly enlarged and without pericardial effusion. The coronary arteries are densely calcified. Emphysematous change is noted the lung bases. There is a small right pleural effus ion with associated atelectasis. Scarring/atelectasis is also seen at the left lung base. There is a small hiatal hernia. Liver: The contrast-enhanced liver is normal in size, contour, and attenuation. There is no intrahepa tic biliary ductal dilatation. The hepatic veins and portal veins are patent. The common bile duct st ent is in place. Gallbladder: Surgically absent noting clips in the gallbladder fossa. Spleen: Normal in size and attenuation. Pancreas: Unremarkable. Adrenal glands: Unremarkable. Kidneys: The contrast enhanced kidneys demonstrate mild cortical atrophy and are without hydronephros is. No renal calculi are identified on the unenhanced series. The kidneys enhance and excrete symmetr ically. There is a 3.3 x 3.3 x 3.2 cm low-attenuation lesion in the posterior interpolar right kidney seen on axial postcontrast image #186. This corresponds to lesion seen on the MRCP, and this lesion shows evidence of postcontrast enhancement. No additional enhancing cortical lesion is seen in either kidney. Numerous bilateral renal cysts measure up to 4.8 cm. There are at least 2 complex/hyperdense cyst which measure up to 2.2 cm. There is no evidence of urothelial lesion in the renal pelvis bilat erally or involving the proximal ureters. Abdominal vasculature: There is advanced atherosclerotic calcification and mild ectasia of the abdomi nal aorta. Bowel: Enteric contrast is noted in the right colon. There is no evidence of bowel obstruction. There is a large duodenal diverticulum. Diverticula are noted in the partially imaged colon with no CT nyasia dence of acute diverticulitis. The appendix is well-visualized and normal. Peritoneum: There is trace perihepatic ascites. Trace fluid is seen tracking in the right paracolic g utter. A small volume of fluid is noted in the gallbladder fossa. No organized/drainable fluid collec tion is identified. Tiny foci of intraperitoneal free air are noted. Postoperative change is suggeste d in the periumbilical soft tissues. Lymphadenopathy: None. Skeletal structures: The skeletal structures are osteopenic. Mild lumbosacral spondylosis is observed . No lytic or blastic lesions are seen. IMPRESSION: 1. There is a 3.3 cm lesion in the posterior interpolar right kidney. This shows postcontrast enhance ment and corresponds to the lesion seen on the recent MRCP. Renal cell carcinoma is the diagnosis of exclusion. 2. There are numerous additional simple and complex cysts identified in both kidneys. 3. The gallbladder is surgically absent and a common bile duct stent is in place. 4. There is trace fluid in the gallbladder fossa, is also trace pericolic ascites. This is likely rel ated to recent surgery. No organized/drainable fluid collection is seen. 5. Tiny foci of intraperitoneal free air are likely related to recent surgery. 6. Small right pleural effusion. 7. Cardiomegaly and emphysema. 8. Additional findings as above. ACT 112: Positive. There are findings on this exam that require communication between the performing entity and the patient following Patient Test Result Information Act ([place] Act 112) guidelines. Electronically signed by: Donis Alex M.D. 12/26/2020 11:39 AM
[2020-12-26] MEDS: amLODIPine BESYLATE 5 MG TAB PO SCH (11:50)
[2020-12-26] MEDS ORDERED: POLYETHYLENE (MIRALAX) 17 GM PACK PO PRN (12:00)
--- NOTE | 2020-12-26 16:01 | Hospitalist Progress Note ---
Date of Service December 26, 2020 Assessment & Plan (1) Elevated liver function tests: Choledocholithiasis Biliary papillary stenosis S/P biliary sphincterotomy and stent placement Transaminitis S/P laparoscopic cholecystectomy POD#1 -Gall Bladder:Mildly distended gallbladder containing sludge. No shadowing calculi identified. Mildly dilated common bile duct measuring 9 mm in maximal diameter. Possible hepatic steatosis. 5 mm cystic lesion within the pancreatic neck possibly representing an IPMN -MRCP:Distended gallbladder with layering sludge versus cholelithiasis. No biliary ductal dilation or choledocholithiasis identified. 7 mm cystic lesion of the peripancreatic neck is suggestive of a sidebranch IPMN. Bilateral renal cysts with a 2.1 x 1.8 cm lesion of the posterior interpolar right kidney suspicious for renal cell carcinoma. Correlation with a CT or MRI renal mass protocol study recommended. --ERCP: The major papilla was located entirely within a diverticulum. Benign biliary papillary stenosis, treated by a biliary sphincterotomy. Occluded cystic duct. The biliary tree was swept and sludge was found. One plastic biliary stent was placed into the common bile duct. -H/O prior Alcohol use--currently denies use -Hold Statin for now -Admits to taking Tylenol daily -Avoid Hepatotoxic agents -Monitor LFTs -Appreciate GI/Surgery Input -Tolerating diet -LFTs trending down -Continue IV Zosyn for now -Needs follow up with surgery upon discharge Renal Lesion Suspicious for renal cell carcinoma H/O Tobacco use -Renal CT:There is a 3.3 cm lesion in the posterior interpolar right kidney. This shows postcontrast enhancement and corresponds to the lesion seen on the recent MRCP. Renal cell carcinoma is the diagnosis of exclusion. There are numerous additional simple and complex cysts identified in both kidneys. The gallbladder is surgically absent and a common bile duct stent is in place. There is trace fluid in the gallbladder fossa, is also trace pericolic ascites. This is likely related to recent surgery. No organized/drainable fluid collection is seen. Tiny foci of intraperitoneal free air are likely related to recent surgery. Small right pleural effusion. Cardiomegaly and emphysema. -Appreciate Urology Input -Needs Urology follow-up as outpatient Hypoxia Likely secondary to atelectasis CXR:Mild left lung base opacities suggestive of atelectasis. 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 DVT Px: Lovenox SQ Code Status Full code Disposition Expect to discharge home when medically stable Admission and Anticipated Discharge Date Admission Date: December 24, 2020 Subjective Patient is seen and examined at bedside Reports having RUQ abd pain this morning Tolerating diet Afebrile today saturating well on room air Denies chest pain, dizziness, dyspnea, nausea Review of Systems Review of Systems: All systems reviewed & are unremarkable except as noted in HPI & below Physical Exam Physical Exam: Physical Exam: Vitals signs as noted above General Appearance:Moderately built and nourished, no apparent distress Head: normocephalic, Atraumatic Eyes: normal inspection, EOMI Neck: supple, Trachea midline Respiratory/Chest: Normal breath sounds, CTA Cardiovascular: S1, S2, No murmur Abdomen/GI:Soft, tender, +surgical scars, Bowel sounds present Extremities/Musculoskelatal:normal inspection, B/L LE edema Neurologic/Psych:AAOX3, grossly no focal neurological deficits Skin: normal color, warm Results & Data Results & Data ([facility]) Vital Signs (Past 12 Hours) Vital Signs Temp Pulse Resp BP BP Pulse Ox 12/26/20 11:08 94 12/26/20 08:22 36.7 C 95 H 18 137/83 97 12/26/20 04:00 36.6 C 86 18 148/98 H 94 Laboratory Results Short CBC 12/26/20 Range/Units 05:49 WBC 9.57 (4.8-10.8) K/uL Hgb 13.0 (12.0-16.0) g/dL Hct 39.1 (37-47) % Plt Count 166 (130-400) K/uL BMP 12/26/20 05:49 Sodium 138 Potassium 3.8 Chloride 103 Carbon Dioxide 29 BUN 6 L Creatinine 0.61 Glucose 164 H Calcium 9.5 Liver Function 12/26/20 Range/Units 05:49 Total Bilirubin 1.0 (0.2-1) mg/dl AST 148 H (15-37) U/L ALT 416 H (12-78) U/L Alkaline Phosphatase 192 H (45-117) U/L Albumin 2.9 L (3.4-5.0) gm/dl
[2020-12-26] MEDS: oxyCODONE/ACETAMINOPHEN 5mg/325mg TAB PO PRN ×2 (17:27→22:31)
[2020-12-26] MEDS: PRIMIDONE 50 MG TAB PO SCH (20:56)
[2020-12-27] MEDS: oxyCODONE/ACETAMINOPHEN 5mg/325mg TAB PO PRN ×2 (02:33→06:24)
[2020-12-27] MEDS: PIPERACILLIN/TAZOBACTAM 3.375 GM in DEXTROSE 5% 100 ML IV SCH (06:16)
[2020-12-27 07:17] LABS: Hematocrit (blood only) 39.4 % (37-47); Hemoglobin 12.9 g/dL (12.0-16.0); Mean Corpuscular Hemoglobin 30.1 pg (25-34); Mean Corpuscular Hgb Conc 32.7 g/dL (32-36); Mean Corpuscular Volume 92.1 fL (80-100); Mean Platelet Volume 10.6 fL (7.4-10.4); Platelet Count 180 K/uL (130-400); RDW Coefficient of Variation 14.3 % (11.5-14.5); RDW Standard Deviation 48.2 fL (36.4-46.3); Red Blood Count 4.28 M/uL (4.2-5.4); White Blood Count 9.62 K/uL (4.8-10.8)
[2020-12-27 07:58] LABS: Albumin Globulin Ratio 0.7 (0.9-2); Bilirubin,Total 0.6 mg/dl (0.2-1); Calcium 9.3 mg/dl (8.5-10.1); Creatinine Clr Calc Pharmacy 79.2 ml/min; Est GFR (African American) 107.3; Est GFR (Non-African American) 92.6; Globulin 4.3 gm/dl (2.5-4.0); Potassium 3.6 mmol/L (3.5-5.1); Total Protein 7.3 gm/dl (6.4-8.2)
[2020-12-27] MEDS: lamoTRIgine 25 MG TAB PO SCH (08:21)
[2020-12-27] MEDS: METOPROLOL TARTRATE 50 MG TAB PO SCH (08:21)
[2020-12-27] MEDS: VENLAFAXINE HCL 50 MG TAB PO SCH (08:21)
[2020-12-27] MEDS: busPIRone 5 MG TAB PO SCH ×2 (08:22→13:39)
[2020-12-27] MEDS: INSULIN ASPART 100 UNITS/ML 3 ML PEN SC SCH ×2 (08:26→12:28)
[2020-12-27] MEDS: ENOXAPARIN INJ 40 MG/0.4 ML SYR SQ SCH (08:27)
[2020-12-27] MEDS: amLODIPine BESYLATE 5 MG TAB PO SCH (08:27)
--- NOTE | 2020-12-27 12:59 | Hospitalist Progress Note ---
Date of Service December 27, 2020 Assessment & Plan (1) Elevated liver function tests: Choledocholithiasis Biliary papillary stenosis S/P biliary sphincterotomy and stent placement Transaminitis S/P laparoscopic cholecystectomy POD#2 -Gall Bladder:Mildly distended gallbladder containing sludge. No shadowing calculi identified. Mildly dilated common bile duct measuring 9 mm in maximal diameter. Possible hepatic steatosis. 5 mm cystic lesion within the pancreatic neck possibly representing an IPMN -MRCP:Distended gallbladder with layering sludge versus cholelithiasis. No biliary ductal dilation or choledocholithiasis identified. 7 mm cystic lesion of the peripancreatic neck is suggestive of a sidebranch IPMN. Bilateral renal cysts with a 2.1 x 1.8 cm lesion of the posterior interpolar right kidney suspicious for renal cell carcinoma. Correlation with a CT or MRI renal mass protocol study recommended. --ERCP: The major papilla was located entirely within a diverticulum. Benign biliary papillary stenosis, treated by a biliary sphincterotomy. Occluded cystic duct. The biliary tree was swept and sludge was found. One plastic biliary stent was placed into the common bile duct. -H/O prior Alcohol use--currently denies use -Admits to taking Tylenol daily -Avoid Hepatotoxic agents -Monitor LFTs -Appreciate GI/Surgery Input -Tolerated diet -LFTs trended down -Continue IV Zosyn will transition to po antibiotics -Needs follow up with surgery and GI upon discharge Renal Lesion Suspicious for renal cell carcinoma H/O Tobacco use -Renal CT:There is a 3.3 cm lesion in the posterior interpolar right kidney. This shows postcontrast enhancement and corresponds to the lesion seen on the recent MRCP. Renal cell carcinoma is the diagnosis of exclusion. There are numerous additional simple and complex cysts identified in both kidneys. The gallbladder is surgically absent and a common bile duct stent is in place. There is trace fluid in the gallbladder fossa, is also trace pericolic ascites. This is likely related to recent surgery. No organized/drainable fluid collection is seen. Tiny foci of intraperitoneal free air are likely related to recent surgery. Small right pleural effusion. Cardiomegaly and emphysema. -Appreciate Urology Input -Needs Urology follow-up as outpatient. Patient agrees with plan. Hypoxia Likely secondary to atelectasis CXR:Mild left lung base opacities suggestive of atelectasis. 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 DVT Px: Lovenox SQ Code Status Full code Disposition Plan to discharge home today Admission and Anticipated Discharge Date Admission Date: December 24, 2020 Subjective Patient is seen and examined at bedside Abd pain is better No new complaints Denies chest pain, dizziness, dyspnea, nausea Eager to get discharged Discussed with Urology and GI today Review of Systems Review of Systems: All systems reviewed & are unremarkable except as noted in HPI & below Physical Exam Physical Exam: Physical Exam: Vitals signs as noted above General Appearance:Moderately built and nourished, no apparent distress Head: normocephalic, Atraumatic Eyes: normal inspection, EOMI Neck: supple, Trachea midline Respiratory/Chest: Normal breath sounds, CTA Cardiovascular: S1, S2, No murmur Abdomen/GI:Soft, non tender, +surgical scars, Bowel sounds present Extremities/Musculoskelatal:normal inspection, B/L LE edema Neurologic/Psych:AAOX3, grossly no focal neurological deficits Skin: normal color, warm Results & Data Results & Data ([facility]) Vital Signs (Past 12 Hours) Vital Signs Temp Pulse Resp BP Pulse Ox 12/27/20 11:50 36.7 C 97 H 16 121/75 93 12/27/20 07:37 36.9 C 119 H 16 123/81 92 Laboratory Results Short CBC 12/27/20 Range/Units 06:53 WBC 9.62 (4.8-10.8) K/uL Hgb 12.9 (12.0-16.0) g/dL Hct 39.4 (37-47) % Plt Count 180 (130-400) K/uL BMP 12/27/20 06:53 Sodium 138 Potassium 3.6 Chloride 103 Carbon Dioxide 27 BUN 8 Creatinine 0.57 L Glucose 132 H Calcium 9.3 Liver Function 12/27/20 Range/Units 06:53 Total Bilirubin 0.6 (0.2-1) mg/dl AST 58 H (15-37) U/L ALT 296 H (12-78) U/L Alkaline Phosphatase 179 H (45-117) U/L Albumin 3.0 L (3.4-5.0) gm/dl
--- NOTE | 2020-12-27 13:18 | Discharge Summary ---
Date of Service December 27, 2020 Admission HPI Per Admitting Provider History obtained from patient and records. Medical history significant for CAD status post stent, hypertension, hyperlipidemia, seizure disorder, mood disorder, prediabetes as per records, past alcohol abuse, ongoing tobacco abuse. Patient woke up yesterday afternoon and noted burning epigastric discomfort going to her chest with some shortness of breath. No cough symptoms. Patient felt she was having a heart attack. Symptoms partially unresponsive to antacids. No recent EtOH intake. No fever, no chills. Patient currently more comfortable at the ER. Medical History as above Surgical History : Breast lesion excision, section, BAKARI, oophorectomy (1 ovary left) Family History : Alcoholism, breast cancer, heart disease Personal/Social history : 1 cigarette/day, past alcohol abuse, [employer] employee Admission Exam Per Admitting Provider Physical Exam Physical Exam: GENERAL: Comfortable, obese, slightly anxious, no respiratory distress SKIN: Normal color, warm HEENT: [place] palpebral conjunctivae, no ptosis, dry buccal mucosa NECK : Supple, short neck, no tenderness CHEST : CTA, no tenderness HEART : RRR, no obvious murmurs ABDOMEN: Some distention, epigastric tenderness EXTREMITIES : Minimal LE swelling , no LE tenderness, no other conspicuous deformities noted NEUROLOGIC : Coherent, no facial asymmetry, no other gross focality Principal Diagnosis Choledocholithiasis Biliary papillary stenosis Right Kidney Lesion Acute Cholecystitis Discharge Data Allergies Allergy/AdvReac Type Severity Reaction Status Date / Time No Known Allergies Allergy Verified 12/23/20 21:48 Consultations 12/23/20 23:16 ED Decision to Admit Stat 12/24/20 01:39 Consult Gastroenterology Routine 12/24/20 14:25 Consult Urology Routine 12/24/20 16:44 Consult General Surgery Routine Procedures Performed Operation Date: 12/24/20 09:25 Actual Procedures p Endoscopic Retrograde Cholangiopancreatogram, endoscopic ultrasound(Not Applicable) - Tiffany Schmitz MD Operation Date: 12/25/20 09:40 Actual Procedures p Laparoscopic Cholecystectomy(Not Applicable) - Bassam Logan MD Gall Bladder:Mildly distended gallbladder containing sludge. No shadowing calculi identified. Mildly dilated common bile duct measuring 9 mm in maximal diameter. Possible hepatic steatosis. 5 mm cystic lesion within the pancreatic neck possibly representing an IPMN MRCP:Distended gallbladder with layering sludge versus cholelithiasis. No biliary ductal dilation or choledocholithiasis identified. 7 mm cystic lesion of the peripancreatic neck is suggestive of a sidebranch IPMN. Bilateral renal cysts with a 2.1 x 1.8 cm lesion of the posterior interpolar right kidney suspicious for renal cell carcinoma. Correlation with a CT or MRI renal mass pro tocol study recommended. ERCP: The major papilla was located entirely within a diverticulum. Benign biliary papillary stenosis, treated by a biliary sphincterotomy. Occluded cystic duct. The biliary tree was swept and sludge was found. One plastic biliary stent was placed into the common bile duct. Renal CT:There is a 3.3 cm lesion in the posterior interpolar right kidney. This shows postcontrast enhancement and corresponds to the lesion seen on the recent MRCP. Renal cell carcinoma is the diagnosis of exclusion. There are numerous additional simple and complex cysts identified in both kidneys. The gallbladder is surgically absent and a common bile duct stent is in place. There is trace fluid in the gallbladder fossa, is also trace pericolic ascites. This is likely related to recent surgery. No organized/drainable fluid collection is seen. Tiny foci of intraperitoneal free air are likely related to recent surgery. Small right pleural effusion. Cardiomegaly and emphysema. Ordered Studies 12/23/20 21:40 US gallbladder Urgent 12/24/20 00:23 MR MRCP Urgent 12/24/20 14:30 FL ERCP biliary ductal Routine 12/24/20 15:32 US upper EUS PACS images Routine 12/26/20 07:00 CT renal wo/w con Routine Hospital Course (1) Elevated liver function tests: Choledocholithiasis Biliary papillary stenosis S/P biliary sphincterotomy and stent placement Acute Cholecystitis-POA S/P laparoscopic cholecystectomy POD#2 -Gall Bladder:Mildly distended gallbladder containing sludge. No shadowing calculi identified. Mildly dilated common bile duct measuring 9 mm in maximal diameter. Possible hepatic steatosis. 5 mm cystic lesion within the pancreatic neck possibly representing an IPMN -MRCP:Distended gallbladder with layering sludge versus cholelithiasis. No biliary ductal dilation or choledocholithiasis identified. 7 mm cystic lesion of the peripancreatic neck is suggestive of a sidebranch IPMN. Bilateral renal cysts with a 2.1 x 1.8 cm lesion of the posterior interpolar right kidney suspicious for renal cell carcinoma. Correlation with a CT or MRI renal mass protocol study recommended. --ERCP: The major papilla was located entirely within a diverticulum. Benign biliary papillary stenosis, treated by a biliary sphincterotomy. Occluded cystic duct. The biliary tree was swept and sludge was found. One plastic biliary stent was placed into the common bile duct. -H/O prior Alcohol use--currently denies use -Admits to taking Tylenol daily -Avoid Hepatotoxic agents -Monitor LFTs -Appreciate GI/Surgery Input -Tolerated diet -LFTs trended down -Continue IV Zosyn will transition to po antibiotics -Needs follow up with surgery and GI upon discharge Renal Lesion Suspicious for renal cell carcinoma H/O Tobacco use -Renal CT:There is a 3.3 cm lesion in the posterior interpolar right kidney. This shows postcontrast enhancement and corresponds to the lesion seen on the recent MRCP. Renal cell carcinoma is the diagnosis of exclusion. There are numerous additional simple and complex cysts identified in both kidneys. The gallbladder is surgically absent and a common bile duct stent is in place. There is trace fluid in the gallbladder fossa, is also trace pericolic ascites. This is likely related to recent surgery. No organized/drainable fluid collection is seen. Tiny foci of intraperitoneal free air are likely related to recent surgery. Small right pleural effusion. Cardiomegaly and emphysema. -Appreciate Urology Input -Needs Urology follow-up as outpatient. Patient agrees with plan. Hypoxia Likely secondary to atelectasis CXR:Mild left lung base opacities suggestive of atelectasis. 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 DVT Px: Lovenox SQ Code Status Full code Disposition Plan to discharge home today Total Time Total Time Spent Total Time Spent (In Minutes): 48 minutes Total Time Includes: Examination of the Patient, Discharge Planning, Medication Reconciliation, Communication With Other Providers and Other Discharge Plan Discharge Items Patient Disposition: Home - Self-Care Reason For Visit: ABD PAIN Discharge Diagnosis: Choledocholithiasis Biliary papillary stenosis Right Kidney Lesion Acute Cholecystitis Activity: Per Instructions section Exercise/Sports: Gradually increase as tolerated Non-emergency contact: Primary Care Provider, Surgeon, Athletic Field Custodian and Urologist Call non-emergency contact if: you have any medication questions, your symptoms worsen, your pain is not controlled, your pain is worsening, your pain is concerning for you, you have a fever, your wound has increased redness, your wound has increased drainage and your wound pain has increased Follow-up/Referrals: Olivier Mac DO [Physician] - 01/04/21 1:20 pm ([facility] [address] [place] [address] ) Sam Hand PA-C [Primary Care Provider] - (Date & Time 01/03/2021 11:00 AM Provider Sam Hand PA-C [facility] ) Diet: Carb Consistent or DM2 Addtl Attending Provider Instructions: Follow-up with your primary care physician Sam Hand PA-C on 01/03/2021 11:00 AM Follow-up with your surgeon Dr. Logan in 2 weeks as recommended Follow-up with your production leader Dr. Schmitz for stent removal as advised Follow-up with your urologist Dr. Olivier Mac on 01/04/21 at 1:20PM as scheduled for further evaluation of your kidney lesion. Hold taking your atorvastatin for 1 week as your liver enzymes are elevated. Discuss with your family physician for further recommendations. Complete the antibiotic (Augmentin) as prescribed. Seek immediate medical attention if your symptoms reoccur or worsen Addtl Electronic Device Repairer Provider Instructions: Post-Surgical ~Discharge Instructions Activity Recommendations: - lifting limitation: (10 pounds for 2 weeks), - exercise/sex/sports limit: (nonstrenuous for 2 weeks), - driving or machine use limit: (none for 1 week), - Shower/bathe limit: (may shower beginning tomorrow) Diet: - Resume previous diet SPECIAL CARE INSTRUCTIONS: - May shower in 24 hours. Let water run over area and pat dry. - Leave steri strips on for one week. - Call the surgeon's office with any questions or concerns - - (ex. temperature higher than 101 degrees F, excessive bleeding or pain). MEDICATIONS: - Resume previous medications unless instructed otherwise by your surgeon. - Ibuprofen 600 mg every 6 hours with food - Percocet 1 every 4 hours, as needed for pain FOLLOW UP VISIT: - If not already scheduled, please call the office to schedule a two week follow-up appointment. Office number Pending Studies at Discharge: Yes Studies:: Blood Cultures Stand-Alone Forms: [facility] [employer], Smoking Cessation Medications and DC Order Prescriptions: New oxycodone-acetaminophen [Percocet] 5-325 mg Tablet 1 tab PO Q4H PRN (Reason: pain) Qty: 5 RF: 0 polyethylene glycol 3350 [Miralax] 17 gram Powder In Packet 17 g PO DAILY PRN (Reason: constipation) Qty: 30 RF: 0 docusate sodium [Colace] 100 mg capsule 100 mg PO BID PRN (Reason: constipation) Qty: 60 RF: 0 amoxicillin-pot clavulanate [Augmentin] 500-125 mg tablet 1 tab PO BID Qty: 10 RF: 0 Continued primidone 50 mg Tablet 50 mg PO DAILY RF: 0 atorvastatin 80 mg Tablet 80 mg PO DAILY RF: 0 lamotrigine 25 mg Tablet 50 mg PO BID RF: 0 amlodipine 10 mg Tablet 10 mg PO DAILY RF: 0 buspirone 10 mg Tablet 10 mg PO TID RF: 0 metoprolol tartrate 50 mg Tablet 50 mg PO BID RF: 0 venlafaxine 50 mg Tablet 50 mg PO DAILY RF: 0 Discharge Orders: Discharge Order (Routine); Ordered 12/27/20 Ordered By: John Yan/Other Patient Handouts: High Blood Sugar (Hyperglycemia), Hypoglycemia (Low Blood Sugar), Managing Type 2 Diabetes, Exercise to Manage Your Blood Sugar, 5 Steps for Eating Healthier, Understanding Type 2 Diabetes Admission Data Admit Date/Time: 12/24/20 14:33 Attending Provider: John William Admit Provider: Forrest Villatoro Primary Care Provider: Sam Hand Other Providers: Forrest Villatoro ; Kaylie Maier ; Tiera De Leon ; Jose Curiel ; Sofia Harman ; Johnathan Varela ; Nydia Rodríguez ; Hanna Lopez ; Michael Rodriguez ; Richard Arteaga ; Carmelina Wright ; Ethel Sevilla ; Janna Bullock ; Genie Feldman ; Tiffany Schmitz ; Leonides Sanchez ; Jerome Manzano ; Renato Almeida ; Lorelei Estes ; Olivier Mac ; Anna Delgado ; Sara Cortez ; Maral Maier ; Darrion Bunch ; Tania Pérez ; Margi Joe ; Bassam Logan Other Interventions: Discharge Summary Assessment (RN) Last Done: 12/27/20 13:28
--- NOTE | 2020-12-27 14:06 | Surgery Progress Note ---
Date of Service December 27, 2020 Assessment & Plan (1) Elevated liver function tests: Postoperative day #2 status post laparoscopic cholecystectomy Doing well from a surgical standpoint Tolerating a diet Abdomen only has incisional tenderness Can discharge to home when felt stable by internal medicine and GI Again discussed postoperative activity restrictions Can follow-up in 2 weeks Admission and Anticipated Discharge Date Admission Date: December 24, 2020 Subjective Postoperative day #2 status post laparoscopic cholecystectomy postoperative day #3 status post ERCP Has only incisional discomfort Tolerated regular diet Denies nausea vomiting Passed flatus Physical Exam Constitutional: no acute distress Gastrointestinal (Abdomen): Inspection/Auscultation: + abdominal surgical incision (Clean, dry and intact); abdomen not distended Percussion/Palpation: + abdomen tender (Incisional only) and abdomen soft Results & Data ([facility]) Vital Signs (Past 12 Hours) Vital Signs Temp Pulse Resp BP Pulse Ox 12/27/20 13:28 36.7 C 97 H 16 121/75 93 12/27/20 11:50 36.7 C 97 H 16 121/75 93 12/27/20 07:37 36.9 C 119 H 16 123/81 92 Laboratory Results 12/27/20 12/27/20 12/27/20 Range/Units 12:08 08:14 06:53 WBC 9.62 (4.8-10.8) K/uL RBC 4.28 (4.2-5.4) M/uL Hgb 12.9 (12.0-16.0) g/dL Hct 39.4 (37-47) % MCV 92.1 (80-100) fL MCH 30.1 (25-34) pg MCHC 32.7 (32-36) g/dL RDW Std Deviation 48.2 H (36.4-46.3) fL RDW Coeff of Miquel 14.3 (11.5-14.5) % Plt Count 180 (130-400) K/uL MPV 10.6 H (7.4-10.4) fL Sodium (136-145) mmol/L Potassium (3.5-5.1) mmol/L Chloride (98-107) mmol/L Carbon Dioxide (21-32) mmol/L Anion Gap (3-11) BUN (7-18) mg/dl Creatinine (0.6-1.2) mg/dl Est Cr Clr Drug Dosing ml/min Est GFR ( Amer) Est GFR (Non-Af Amer) BUN/Creatinine Ratio (10-20) Glucose (70-99) mg/dl POC Glucose 152 H 136 H (70-99) mg/dl Calcium (8.5-10.1) mg/dl Total Bilirubin (0.2-1) mg/dl AST (15-37) U/L ALT (12-78) U/L Alkaline Phosphatase (45-117) U/L Total Protein (6.4-8.2) gm/dl Albumin (3.4-5.0) gm/dl Globulin (2.5-4.0) gm/dl Albumin/Globulin Ratio (0.9-2) 12/27/20 12/26/20 12/26/20 Range/Units 06:53 20:49 17:14 WBC (4.8-10.8) K/uL RBC (4.2-5.4) M/uL Hgb (12.0-16.0) g/dL Hct (37-47) % MCV (80-100) fL MCH (25-34) pg MCHC (32-36) g/dL RDW Std Deviation (36.4-46.3) fL RDW Coeff of Miquel (11.5-14.5) % Plt Count (130-400) K/uL MPV (7.4-10.4) fL Sodium 138 (136-145) mmol/L Potassium 3.6 (3.5-5.1) mmol/L Chloride 103 (98-107) mmol/L Carbon Dioxide 27 (21-32) mmol/L Anion Gap 8.0 (3-11) BUN 8 (7-18) mg/dl Creatinine 0.57 L (0.6-1.2) mg/dl Est Cr Clr Drug Dosing 79.2 ml/min Est GFR ( Amer) 107.3 Est GFR (Non-Af Amer) 92.6 BUN/Creatinine Ratio 14.0 (10-20) Glucose 132 H (70-99) mg/dl POC Glucose 195 H 155 H (70-99) mg/dl Calcium 9.3 (8.5-10.1) mg/dl Total Bilirubin 0.6 (0.2-1) mg/dl AST 58 H (15-37) U/L ALT 296 H (12-78) U/L Alkaline Phosphatase 179 H (45-117) U/L Total Protein 7.3 (6.4-8.2) gm/dl Albumin 3.0 L (3.4-5.0) gm/dl Globulin 4.3 H (2.5-4.0) gm/dl Albumin/Globulin Ratio 0.7 L (0.9-2)
[2020-12-28] MEDS ORDERED: GLUCAGON FOR INJ 1 MG VIAL ONE (17:30)
--- NOTE | 2021-01-02 09:51 | Coding Query ---
PATHOLOGY To promote full compliance with coding requirements relating to patient care, physician participation is requested in all cases of senior windows systems engineer uncertainty. Please assist us with the question(s) below: Please review the Pathology report and please document any relevant diagnosis(es) below: Diagnosis(es):Well differentiated invasive adenocarcinoma Thank you Alejandra ROJAS
== END 2020-12-27 14:15 | disposition home or self-care (01) | DRG 418 ==
LOC: ED 20:48 → 3N 20:48